=== PATIENT | male | born 1955 | race Caucasian/White ===

== ENCOUNTER → 2018-04-09 | Outpatient (CLI) | payer BC ==
--- NOTE | 2018-04-09 14:57 | US ---
EXAMINATION TYPE: US carotid duplex BILAT DATE OF EXAM: 04/09/2018 COMPARISON: NONE CLINICAL HISTORY: R42 Dizziness and Giddiness. EXAM MEASUREMENTS: RIGHT: Peak Systolic Velocity (PSV) cm/sec ----- Right CCA: 108 ----- Right ICA: 86.2 ----- Right ECA: 81.9 ICA/CCA ratio: 0.79 RIGHT: End Diastole cm/sec ----- Right CCA: 22.4 ----- Right ICA: 30.8 ----- Right ECA: 12.1 LEFT: Peak Systolic Velocity (PSV) cm/sec ----- Left CCA: 95.5 ----- Left ICA: 101.0 ----- Left ECA: 120 ICA/CCA ratio: 1.05 LEFT: End Diastole cm/sec ----- Left CCA: 22.5 ----- Left ICA: 22.5 ----- Left ECA: 18.8 VERTEBRALS (direction of flow): Right Vertebral: Antegrade Left Vertebral: Antegrade Rhythm: Normal No significant velocity elevations, minimal atherosclerotic changes. IMPRESSION: 1. Minimal bilateral atherosclerotic changes with no significant hemodynamic stenosis bilaterally. Criteria for Assigning % of Stenosis / Diameter reduction (Estimation based on the indirect measurements of the internal carotid artery velocities (ICA PSV). 1. Normal (no stenosis)=ICA PSV < 125 cm/s: ratio < 2.0: ICA EDV<40 cm/s. 2. Less than 50% stenosis=ICA PSV < 125 cm/s: ratio < 2.0: ICA EDV<40 cm/s. 3. 50 to 69% stenosis=ICA PSV of 125 to 230 cm/s: ration 2.0 ? 4.0: ICA EDV 40-100 cm/s. 4. Greater than 70% stenosis to near occlusion= ICA PSV > 230 cm/s: ratio > 4.0: ICA EDV > 100 cm/s. 5. Near occlusion= ICA PSV velocities may be low or undetectable: variable ratio and ICA EDV. 6. Total occlusion=unable to detect flow.
== END ==
LOC: RADUSWWP 14:06
PROVIDERS: ATTEND Family Medicine
DX: I70.90 Unspecified atherosclerosis (principal)
CPT/HCPCS: 93880

== ENCOUNTER → 2018-04-13 | Outpatient (CLI) | payer BC ==
--- NOTE | 2018-04-13 13:18 | EST ---
EXERCISE STRESS DATE OF SERVICE: 04/13/2018 AGE: 63 SEX: Male HT: 73 WT: 190 PROTOCOL: Quoc STAGE: III DURATION OF EXERCISE: 7 minutes HEART RATE REST: 106 BLOOD PRESSURE REST: 142/80 MAXIMUM HEART RATE ACHIEVED: 153 MAXIMUM BLOOD PRESSURE: 187/77 85% MPHR: 133 100% MPHR: 157 METS: 8.5 INDICATIONS: Chest pain. CLINICAL INFORMATION: Baseline EKG revealed normal sinus rhythm with a right bundle branch block pattern in the repolarization abnormality. Patient walked for 7 minutes on standard Quoc protocol. Heart rate changed from 106 to 153 and blood pressure changed from 142/80 to 187/77. The patient did not have angina or arrhythmia. He developed some fatigue and shortness of breath. EKG demonstrated no significant changes. However, because of resting EKG changes being abnormal, this is considered as an inconclusive stress test. Limited exercise capacity was noted. FINAL IMPRESSION: By EKG, this is an inconclusive stress test because of resting EKG changes. The patient had a right bundle with repolarization abnormality and heart rate was up to 153 beats per minute. No subjective symptoms of angina was noted, but this is an inconclusive stress test because of resting EKG changes. MMODL / IJN: [id number] /
== END | disposition home or self-care (01) ==
LOC: RADNMMAIN 08:41
PROVIDERS: ATTEND Family Medicine
DX: R94.39 Abnormal result of other cardiovascular function study (principal); R07.9 Chest pain, unspecified
CPT/HCPCS: 93017

== ENCOUNTER → 2020-10-26 | Day surgery (SDC) | payer BC, MEDICARE ==
[2020-10-24 10:32] VITALS: BMI 25.0
[~2020-10-26] MED LIST: LACTATED RINGERS 1,000 ML IV SCH; MIDAZOLAM 2 MG/2 ML VIAL ONE; PROPOFOL 10 MG/ML 20 ML VIAL IV ONE; fentaNYL (PF) 50 MCG/ML 2 ML AMP ONE
[2020-10-26 10:29] VITALS: TEMP 96.5
--- NOTE | 2020-10-26 11:22 | P.PCN ---
Date of Procedure: 10/26/20 Procedure(s) Performed: BRIEF HISTORY: Patient is a 65-year-old pleasant male scheduled for an elective colonoscopy as a part of screening for colorectal neoplasia. PROCEDURE PERFORMED: Colonoscopy with snare polypectomy. PREOPERATIVE DIAGNOSIS: Screening for colon cancer. IV sedation per Anesthesia. PROCEDURE: After informed consent was obtained, the patient, was brought into the endoscopy unit. IV sedation was administered by Anesthesia under continuous monitoring. Digital rectal examination was normal. Initially the Olympus CF-160 flexible video colonoscope was then inserted in the rectum, gradually advanced into the cecum without any difficulty. Careful examination was performed as the scope was gradually being withdrawn. Ileocecal valve and the appendiceal orifice were visualized and appeared normal. Prep was excellent. Mucosa of the cecum had a 5 mm polyp that was moved by snare polypectomy. Rest of the, ascending colon, transverse colon, descending colon, sigmoid colon, and rectum appeared normal. Scattered sigmoid diverticulosis seen. Retroflexion was performed in the rectum and no lesions were seen. The patient tolerated the procedure well. IMPRESSION: 5 mm cecal polyp status post polypectomy Scattered sigmoid diverticulosis RECOMMENDATIONS: Findings of this examination were discussed with the patient as well as his family. He was advised to follow with the biopsy results. If the biopsy shows an adenoma she can have a repeat colonoscopy in 5 years.
[2020-10-26 11:29] VITALS: RESP 17
[2020-10-26 11:40] VITALS: BP 114/72; PULSE 70
== END ==
LOC: ORWHC2ENDO 09:55
PROVIDERS: ATTEND Internal Medicine Gastroenterology
DX: Z12.11 Encounter for screening for malignant neoplasm of colon (principal); D12.0 Benign neoplasm of cecum; K57.30 Diverticulosis of large intestine without perforation or abscess without bleeding; Z79.82 Long term (current) use of aspirin; Z98.49 Cataract extraction status, unspecified eye; Z98.890 Other specified postprocedural states
CPT/HCPCS: 88305; 45385; J2250; J3010; J2704

== ENCOUNTER 2022-03-09 16:51 | Emergency (ER) | payer MEDICARE ==
[2022-03-09] MEDS ORDERED: SODIUM CHLORIDE 0.9% 500 ML 500 ML IV STA (17:23)
--- NOTE | 2022-03-09 17:29 | ED ---
General Adult HPI - General Chief complaint: Syncope Stated complaint: near syncope Time Seen by Provider: 03/09/22 17:14 Source: patient, EMS, RN notes reviewed, old records reviewed Mode of arrival: EMS Limitations: no limitations - History of Present Illness Initial comments: This is a well-appearing 66-year-old male that presents to the emergency room via EMS with complaints of a near syncopal episode today. Patient states that he developed some epigastric abdominal pain earlier this afternoon with belching. About an hour later he was speaking to his son on video chat and became very diaphoretic with abdominal cramping lasting about 1 minute. He became dizzy feeling like he was going to pass out. He states he then had a large loose bowel movement. Shortly later he had a second explosive episode of diarrhea. He states his symptoms have all resolved this time. He has no medical history. Takes aspirin on a daily basis. Denies any hematochezia or hematemesis. No known sick contacts. No fevers. Denies any abdominal pain, chest pain or difficulty breathing. -: hour(s) (3) Location: abdomen Radiation: non-radiation Severity scale (1-10): 0 Quality: other (cramping) Consistency: now resolved Associated Symptoms: diaphoresis, nausea/vomiting (no vomiting), other (diarrhea, dizziness) Treatments Prior to Arrival: other (EMS IVF) - Related Data Home Medications Medication Instructions Recorded Confirmed Ascorbic Acid [Vitamin C] 1,000 mg PO DAILY 10/24/20 10/24/20 Aspirin [Adult Low Dose Aspirin EC] 81 mg PO DAILY 10/24/20 10/24/20 Cholecalciferol [Vitamin D3 (25 100 mcg PO DAILY 10/24/20 10/24/20 Mcg = 1000 Iu)] Zinc/Picolinate 30 mg PO DAILY 10/24/20 Allergies Allergy/AdvReac Type Severity Reaction Status Date / Time No Known Allergies Allergy Verified 03/09/22 17:00 Review of Systems ROS Statement: Those systems with pertinent positive or pertinent negative responses have been documented in the HPI. ROS Other: All systems not noted in ROS Statement are negative. Past Medical History Past Medical History: Cancer Additional Past Medical History / Comment(s): Hx palpitiations, f/u EKG nl. Skin cancer on nose. History of Any Multi-Drug Resistant Organisms: None Reported Past Surgical History: Orthopedic Surgery Additional Past Surgical History / Comment(s): Skin cancer exc. Rt Knee scope. Colonoscopy. Bilat cataracts Past Anesthesia/Blood Transfusion Reactions: Motion Sickness, Postoperative Nausea & Vomiting (PONV) Additional Past Anesthesia/Blood Transfusion Reaction / Comment(s): PONV w/ knee surg. Past Psychological History: No Psychological Hx Reported Smoking Status: Former smoker Past Alcohol Use History: Rare Past Drug Use History: None Reported - Past Family History Mother Family Medical History: No Reported History General Exam Limitations: no limitations General appearance: alert, in no apparent distress Head exam: Present: atraumatic, normocephalic, normal inspection Eye exam: Present: normal appearance, EOMI. Absent: scleral icterus, conjunctival injection, nystagmus, periorbital swelling, periorbital tenderness ENT exam: Present: mucous membranes moist Neck exam: Present: normal inspection, full ROM. Absent: tenderness, meningismus, lymphadenopathy Respiratory exam: Present: normal lung sounds bilaterally. Absent: respiratory distress, wheezes, rales, rhonchi, stridor, chest wall tenderness, accessory muscle use Cardiovascular Exam: Present: regular rate GI/Abdominal exam: Present: soft. Absent: distended, tenderness, guarding, r ebound, rigid Extremities exam: Present: normal inspection, full ROM, normal capillary refill. Absent: tenderness, pedal edema, calf tenderness Back exam: Present: normal inspection, full ROM. Absent: tenderness, CVA tenderness (R), CVA tenderness (L), rash noted Neurological exam: Present: alert, oriented X3, CN II-XII intact Psychiatric exam: Present: normal affect, normal mood Skin exam: Present: warm, dry, normal color. Absent: cyanosis, diaphoretic, petechiae, pallor Course Vital Signs 03/09/22 03/09/22 03/09/22 16:55 18:00 19:00 Temperature 98.1 F Pulse Rate 83 80 Pulse Rate [ 93 Travelift Operator ] Respiratory 16 17 16 Rate Blood Pressure 144/89 131/81 Blood Pressure [Right Arm Sitting] Blood Pressure [Right Arm Standing] Blood Pressure 143/83 [Right Arm Supine] O2 Sat by Pulse 98 99 95 Oximetry 03/09/22 03/09/22 03/09/22 19:02 19:03 19:34 Temperature 98.3 F Pulse Rate Pulse Rate [ 90 98 Travelift Operator ] Respiratory 17 18 Rate Blood Pressure Blood Pressure 150/84 [Right Arm Sitting] Blood Pressure 146/76 [Right Arm Standing] Blood Pressure [Right Arm Supine] O2 Sat by Pulse 98 100 Oximetry 03/09/22 19:56 Temperature 98.5 F Pulse Rate 92 Pulse Rate [ Travelift Operator ] Respiratory 16 Rate Blood Pressure 137/83 Blood Pressure [Right Arm Sitting] Blood Pressure [Right Arm Standing] Blood Pressure [Right Arm Supine] O2 Sat by Pulse 99 Oximetry - Reevaluation(s) Reevaluation #1: 03/09/22 18:28 Patient is feeling better but does have some nausea. Labs are unremarkable. Time: 18:28 EKG Findings - EKG Results: EKG: sinus rhythm (Ventricular rate 88, AR interval 0.144, QRS 0.142, QTC 0.412; indeterminate axis; right bundle-branch block), not changed from: (04/13/2018) Medical Decision Making - Medical Decision Making Labs show mild leukocytosis likely related to a viral gastroenteritis with diarrhea and vomiting. Electrolytes are unremarkable. Troponin negative at 0.012. EKG interpreted by me shows sinus rhythm with Ventricular rate 88, AR interval 0.144, QRS 0.142, QTC 0.412; indeterminate ax is; right bundle-branch block. Coronavirus influenza A and influenza B swab are negative. He did have another episode of diaphoresis just prior to having another large loose bowel movement in the ER. This is consistent with a vasovagal episode. He was observed in the emergency room for a couple of hours after the incident and is feeling much better. Patient was given IV fluids, Zofran and Imodium. He was given Zofran and directed to increase his fluid intake. Orthostatic vital signs negative. Upon reassessment patient is feeling much better. Abdomen is soft and nontender. Vital signs are stable. Patient will be discharged home with a viral gastroenteritis. Return parameters were discussed. Directed to follow up with his primary care doctor this week. Patient is agreeable to this plan of care. Case discussed with Dr. Nguyen - Lab Data Result diagrams: 03/09/22 17:37 03/09/22 17:37 Lab Results 03/09/22 03/09/22 03/09/22 Range/Units 17:37 17:37 17:37 WBC 13.1 H (3.8-10.6) k/uL RBC 4.67 (4.30-5.90) m/uL Hgb 15.2 (13.0-17.5) gm/dL Hct 43.6 (39.0-53.0) % MCV 93.3 (80.0-100.0) fL MCH 32.4 (25.0-35.0) pg MCHC 34.8 (31.0-37.0) g/dL RDW 12.7 (11.5-15.5) % Plt Count 243 (150-450) k/uL MPV 7.9 Neutrophils % 87 % Lymphocytes % 7 % Monocytes % 4 % Eosinophils % 1 % Basophils % 0 % Neutrophils # 11.3 H (1.3-7.7) k/uL Lymphocytes # 0.9 L (1.0-4.8) k/uL Monocytes # 0.5 (0-1.0) k/uL Eosinophils # 0.2 (0-0.7) k/uL Basophils # 0.0 (0-0.2) k/uL PT 10.7 (9.0-12.0) sec INR 1.0 (<1.2) APTT 23.8 (22.0-30.0) sec Sodium 141 (137-145) mmol/L Potassium 4.7 (3.5-5.1) mmol/L Chloride 105 (98-107) mmol/L Carbon Dioxide 29 (22-30) mmol/L Anion Gap 7 mmol/L BUN 20 (9-20) mg/dL Creatinine 1.25 (0.66-1.25) mg/dL Est GFR (CKD-EPI)AfAm 69 (>60 ml/min/1.73 sqM) Est GFR (CKD-EPI)NonAf 60 (>60 ml/min/1.73 sqM) Glucose 109 H (74-99) mg/dL Calcium 9.0 (8.4-10.2) mg/dL Magnesium 1.7 (1.6-2.3) mg/dL Total Bilirubin 0.7 (0.2-1.3) mg/dL AST 30 (17-59) U/L ALT 35 (4-49) U/L Alkaline Phosphatase 65 (38-126) U/L Troponin I (0.000-0.034) ng/mL Total Protein 7.4 (6.3-8.2) g/dL Albumin 4.4 (3.5-5.0) g/dL Coronavirus (PCR) (Not Detectd) Influenza Type A RNA (Not Detectd) Influenza Type B (PCR) (Not Detectd) 03/09/22 03/09/22 03/09/22 Range/Units 17:37 17:37 17:37 WBC (3.8-10.6) k/uL RBC (4.30-5.90) m/uL Hgb (13.0-17.5) gm/dL Hct (39.0-53.0) % MCV (80.0-100.0) fL MCH (25.0-35.0) pg MCHC (31.0-37.0) g/dL RDW (11.5-15.5) % Plt Count (150-450) k/uL MPV Neutrophils % % Lymphocytes % % Monocytes % % Eosinophils % % Basophils % % Neutrophils # (1.3-7.7) k/uL Lymphocytes # (1.0-4.8) k/uL Monocytes # (0-1.0) k/uL Eosinophils # (0-0.7) k/uL Basophils # (0-0.2) k/uL PT (9.0-12.0) sec INR (<1.2) APTT (22.0-30.0) sec Sodium (137-145) mmol/L Potassium (3.5-5.1) mmol/L Chloride (98-107) mmol/L Carbon Dioxide (22-30) mmol/L Anion Gap mmol/L BUN (9-20) mg/dL Creatinine (0.66-1.25) mg/dL Est GFR (CKD-EPI)AfAm (>60 ml/min/1.73 sqM) Est GFR (CKD-EPI)NonAf (>60 ml/min/1.73 sqM) Glucose (74-99) mg/dL Calcium (8.4-10.2) mg/dL Magnesium (1.6-2.3) mg/dL Total Bilirubin (0.2-1.3) mg/dL AST (17-59) U/L ALT (4-49) U/L Alkaline Phosphatase (38-126) U/L Troponin I <0.012 (0.000-0.034) ng/mL Total Protein (6.3-8.2) g/dL Albumin (3.5-5.0) g/dL Coronavirus (PCR) Not Detected (Not Detectd) Influenza Type A RNA Not Detected (Not Detectd) Influenza Type B (PCR) Not Detected (Not Detectd) Disposition Clinical Impression: Gastroenteritis Disposition: HOME SELF-CARE Condition: Good Instructions (If sedation given, give patient instructions): Gastroenteritis (ED) Additional Instructions: Increase your fluid intake. Remember to change your position slowly to avoid any dizziness or falls. Zofran as needed for any nausea as prescribed. Imodium for diarrhea [id number]. Follow-up with the primary care doctor this week. Return to the emergency room with any new or concerning symptoms. Is patient prescribed a controlled substance at d/c from ED?: No Referrals: Miguel Ángel Pimentel MD [Primary Care Provider] - 1-2 days Time of Disposition: 19:59
[2022-03-09 17:48] LABS: Basophils % (A) 0 %; Eosinophils # (A) 0.2 k/uL (0-0.7); Eosinophils % (A) 1 %; HCT 43.6 % (39.0-53.0); HGB 15.2 gm/dL (13.0-17.5); Lymphocytes # (A) 0.9 k/uL (1.0-4.8); Lymphocytes % (A) 7 %; MCH 32.4 pg (25.0-35.0); MCHC 34.8 g/dL (31.0-37.0); MCV 93.3 fL (80.0-100.0); Mean Platelet Volume 7.9; Monocytes # (A) 0.5 k/uL (0-1.0); Monocytes % (A) 4 %; Neutrophils # (A) 11.3 k/uL (1.3-7.7); Neutrophils % (A) 87 %; Platelet Count 243 k/uL (150-450); RBC 4.67 m/uL (4.30-5.90); RDW 12.7 % (11.5-15.5); WBC 13.1 k/uL (3.8-10.6)
--- NOTE | 2022-03-09 17:52 | XR ---
EXAMINATION TYPE: XR chest 2V DATE OF EXAM: 03/09/2022 COMPARISON: NONE HISTORY: Syncope TECHNIQUE: 2 views FINDINGS: Heart and mediastinum are normal. Lungs are clear. Diaphragm is normal. Bony thorax is inta ct. IMPRESSION: Normal chest.
[2022-03-09 17:57] LABS: Partial Thromboplastin Time 23.8 sec (22.0-30.0); Prothrombin Time 10.7 sec (9.0-12.0)
[2022-03-09 17:58] LABS: Albumin 4.4 g/dL (3.5-5.0); Magnesium 1.7 mg/dL (1.6-2.3); Potassium 4.7 mmol/L (3.5-5.1); Total Bilirubin 0.7 mg/dL (0.2-1.3); Total Protein 7.4 g/dL (6.3-8.2)
[2022-03-09] MEDS ORDERED: ONDANSETRON 4 MG/2 ML VIAL IVP STA (18:28)
[2022-03-09] MEDS ORDERED: LOPERAMIDE 2 MG CAP PO STA (19:56)
[2022-03-09 19:57] VITALS: BP 137/83; PULSE 92; RESP 16; TEMP 98.5
[2022-03-09] MEDS ORDERED: ONDANSETRON 4 MG ODT STARTER PACK 2 TAB BTL PO STA (19:57)
== END 2022-03-09 20:36 | disposition home or self-care (01) ==
LOC: EC 16:51
DX: K52.9 Noninfective gastroenteritis and colitis, unspecified (principal); Z87.891 Personal history of nicotine dependence
CPT/HCPCS: 36415; 93005; 80053; 83735; 84484; 85025; 85610; 85730; 87502; 87635; 71046; 99285; 96374; 96361; J2405; S0119

== ENCOUNTER 2023-06-23 13:01 | Observation (INO) | payer MEDICARE ==
[2023-06-23] MEDS: ASPIRIN 81 MG PO STA (13:32)
[2023-06-23] MEDS: NITROGLYCERIN OINT 1 INCH/GM PACKET TOPICAL STA (13:34)
--- NOTE | 2023-06-23 13:46 | ED ---
General Adult HPI - General Chief complaint: Chest Pain Stated complaint: Chest Pain, High Heart Rate Time Seen by Provider: 06/23/23 13:05 Source: patient, RN notes reviewed, old records reviewed Mode of arrival: ambulatory Limitations: no limitations - History of Present Illness Initial comments: This is a 68-year-old male who presents to the emergency department stating that for the last 3 days he was having intermittent chest pain and he describes it as a pressure. Patient denies any radiation of the pain. Patient denies any shortness of breath or difficulty breathing. Patient denies any nausea. Patient denies any diaphoretic episode. Patient denies any recent fever chills or cough. Patient denies any history of heart disease diabetes high blood pressure high cholesterol. Patient denies any smoking history or family history. Patient states is not always there it kind of comes and goes but it usually worse if he is doing something. No calf tenderness or leg swelling. - Related Data Home Medications Medication Instructions Recorded Confirmed Ascorbic Acid [Vitamin C] 1,000 mg PO DAILY 10/24/20 06/23/23 Aspirin [Adult Low Dose Aspirin EC] 81 mg PO DAILY 10/24/20 06/23/23 Cholecalciferol [Vitamin D3 (25 50 mcg PO DAILY 10/24/20 06/23/23 Mcg = 1000 Iu)] Quercetin(Unknown Dose) 1 tab PO DAILY 06/23/23 06/23/23 Zinc Gluconate [Zinc] 50 mg PO DAILY 06/23/23 06/23/23 Allergies Allergy/AdvReac Type Severity Reaction Status Date / Time lanolin Allergy Rash/Hives Verified 06/23/23 14:40 Review of Systems ROS Statement: Those systems with pertinent positive or pertinent negative responses have been documented in the HPI. ROS Other: All systems not noted in ROS Statement are negative. Past Medical History Past Medical History: Cancer Additional Past Medical History / Comment(s): Hx palpitiations, f/u EKG nl. Skin cancer on nose. History of Any Multi-Drug Resistant Organisms: None Reported Past Surgical History: Hernia Repair, Orthopedic Surgery Additional Past Surgical History / Comment(s): Skin cancer exc. Rt Knee scope. Colonoscopy. Bilat cataracts Past Anesthesia/Blood Transfusion Reactions: Motion Sickness, Postoperative Nausea & Vomiting (PONV) Additional Past Anesthesia/Blood Transfusion Reaction / Comment(s): PONV w/ knee surg. Past Psychological History: No Psychological Hx Reported Smoking Status: Former smoker Past Alcohol Use History: Rare Past Drug Use History: None Reported - Past Family History Mother Family Medical History: No Reported History General Exam - General Exam Comments Initial Comments: GENERAL: Patient is well-developed and well-nourished. Patient is nontoxic and well- hydrated and is in mild distress. ENT: Neck is soft and supple. No significant lymphadenopathy is noted. Oropharynx is clear. Moist mucous membranes. Neck has full range of motion without eliciting any pain. EYES: The sclera were anicteric and conjunctiva were pink and moist. Extraocular movements were intact and pupils were equal round and reactive to light. Eyelids were unremarkable. PULMONARY: Unlabored respirations. Good breath sounds bilaterally. No audible rales rhonchi or wheezing was noted. CARDIOVASCULAR: There is a regular rate and rhythm without any murmurs gallops or rubs. ABDOMEN: Soft and nontender with normal bowel sounds. SKIN: Skin is clear with no lesions or rashes and otherwise unremarkable. NEUROLOGIC: Patient is alert and oriented x3. Cranial nerves II through XII are grossly intact. Motor and sensory are also intact. Normal speech, volume and content. Symmetrical smile. MUSCULOSKELETAL: Normal extremities with adequate strength and full range of motion. No lower extremity swelling or edema. No calf tenderness. LYMPHATICS: No significant lymphadenopathy is noted PSYCHIATRIC: Normal psychiatric evaluation. Limitations: no limitations Course Vital Signs 06/23/23 06/23/23 06/23/23 13:03 13:06 13:31 Temperature 97.8 F Pulse Rate 71 Respiratory 18 Rate Blood Pressure 181/94 167/97 157/87 O2 Sat by Pulse 100 Oximetry 06/23/23 14:00 Temperature Pulse Rate 75 Respiratory 12 Rate Blood Pressure 141/89 O2 Sat by Pulse 100 Oximetry Medical Decision Making - Medical Decision Making EKG is interpreted by myself but EKG shows a sinus rhythm with occasional PAC at 75 bpm parables 155 QRS is 150 QT interval 385 QTc is 414. Patient's EKG shows a right bundle branch block. Was pt. sent in by a medical professional or institution (, PA, JOINTER MACHINE, urgent care, hospital, or long-term...) When possible be specific @ -No Did you speak to anyone other than the patient for history (EMS, parent, family, police, friend...)? What history was obtained from this source @ -EMS gave most of the history on this patient Did you review nursing and triage notes (agree or disagree)? Why? @ -I reviewed and agree with nursing and triage notes Were old charts reviewed (outside hosp., previous admission, EMS record, old EKG, old radiological studies, urgent care reports/EKG's, long-term records)? Report findings @ -I reviewed prior charts and prior lab work on this patient Differential Diagnosis (chest pain, altered mental status, abdominal pain women, abdominal pain men, vaginal bleeding, weakness, fever, dyspnea, syncope, headache, dizziness, GI bleed, back pain, seizure, CVA, palpatations, mental health, musculoskeletal)? @ -Differential Dyspnea: Coronary syndrome, arrhythmia, tamponade, asthma, COPD, pulmonary embolism, pneumonia, pneumothorax, pulmonary effusion, anaphylaxis, diabetic ketoacidosis, flailed chest, pulmonary contusion, diaphragmatic rupture, anemia, neuromuscular, this is not meant to be an all-inclusive list. Differential Palpitations Ventricular arrhythmias, atrial arrhythmias, myocardial infarction, anemia, thyrotoxicosis, electrolyte imbalance, hypokalemia, pulmonary embolism, pulmonary disease, drugs, alcohol, anxiety, stress.... This is not meant to be an all-inclusive list. EKG interpreted by me (3pts min.). @ -As above X-rays interpreted by me (1pt min.). @ -Chest x-ray shows no acute abnormality CT interpreted by me (1pt min.). @ -None done U/S interpreted by me (1pt. min.). @ -None done What testing was considered but not performed or refused? (CT, X-rays, U/S, labs)? Why? @ -None What meds were considered but not given or refused? Why? @ -None Did you discuss the management of the patient with other professionals (professionals i.e. DrJavier, PA, JOINTER MACHINE, lab, RT, psych nurse, long term care social worker, diathermy equipment repairer, teacher, parking regulation enforcement officer, telephonic case manager)? Give summary @ -I spoke with Dr. Townsend and he agreed with the patient admit the patient wrote admitting orders Was smoking cessation discussed for >3mins.? @ -No Was critical care preformed (if so, how long)? @ -No Were there social determinants of health that impacted care today? How? (Homelessness, low income, unemployed, alcoholism, drug addiction, transportation, low edu. Level, literacy, decrease access to med. care, long term, rehab)? @ -No Was there de-escalation of care discussed even if they declined (Discuss DNR or withdrawal of care, Hospice)? DNR status @ -No What co-morbidities impacted this encounter? (DM, HTN, Smoking, COPD, CAD, Cancer, CVA, ARF, Chemo, Hep., AIDS, mental health diagnosis, sleep apnea, morbid obesity)? @ -None Was patient admitted / discharged? Hospital course, mention meds given and route, prescriptions, significant lab abnormalities, going to OR and other pertinent info. @ -Patient stated after he got the aspirin and Nitropaste he was feeling a little bit better but he still had some chest pressure. Patient is willing to stay. I spoke with Dr. Townsend he agreed to admit the patient admit the patient I consulted cardiology. Undiagnosed new problem with uncertain prognosis? @ -No Drug Therapy requiring intensive monitoring for toxicity (Heparin, Nitro, Insulin, Cardizem)? @ -No Were any procedures done? @ -No Diagnosis/symptom? @ -Chest pain Acute, or Chronic, or Acute on Chronic? @ -Acute Uncomplicated (without systemic symptoms) or Complicated (systemic symptoms)? @ -Complicated Side effects of treatment? @ -No Exacerbation, Progression, or Severe Exacerbation? @ -No Poses a threat to life or bodily function? How? (Chest pain, USA, DC, pneumonia, PE, COPD, DKA, ARF, appy, cholecystitis, CVA, Diverticulitis, Homicidal, Suicidal, threat to staff... and all critical care pts) @ -Yes this can lead to an DC and endorgan dysfunction or possible - Lab Data Result diagrams: 06/23/23 13:37 06/23/23 13:37 Lab Results 06/23/23 06/23/23 06/23/23 Range/Units 13:37 13:37 13:37 WBC 7.0 (3.8-10.6) k/uL RBC 4.92 (4.30-5.90) m/uL Hgb 15.3 (13.0-17.5) gm/dL Hct 46.3 (39.0-53.0) % MCV 94.0 (80.0-100.0) fL MCH 31.0 (25.0-35.0) pg MCHC 33.0 (31.0-37.0) g/dL RDW 12.0 (11.5-15.5) % Plt Count 292 (150-450) k/uL MPV 7.2 Neutrophils % 62 % Lymphocytes % 25 % Monocytes % 6 % Eosinophils % 4 % Basophils % 1 % Neutrophils # 4.4 (1.3-7.7) k/uL Lymphocytes # 1.8 (1.0-4.8) k/uL Monocytes # 0.4 (0-1.0) k/uL Eosinophils # 0.3 (0-0.7) k/uL Basophils # 0.1 (0-0.2) k/uL PT 11.1 (10.0-12.5) sec INR 1.0 (<1.2) APTT 26.5 (22.0-30.0) sec Sodium 139 (137-145) mmol/L Potassium 4.1 (3.5-5.1) mmol/L Chloride 103 (98-107) mmol/L Carbon Dioxide 28 (22-30) mmol/L Anion Gap 8 mmol/L BUN 17 (9-20) mg/dL Creatinine 1.17 (0.66-1.25) mg/dL Est GFR (CKD-EPI)AfAm 74 (>60 ml/min/1.73 sqM) Est GFR (CKD-EPI)NonAf 64 (>60 ml/min/1.73 sqM) Glucose 101 H (74-99) mg/dL Calcium 9.7 (8.4-10.2) mg/dL Magnesium 1.9 (1.6-2.3) mg/dL Total Bilirubin 0.5 (0.2-1.3) mg/dL AST 30 (17-59) U/L ALT 27 (4-49) U/L Alkaline Phosphatase 77 (38-126) U/L Troponin I (0.000-0.034) ng/mL Total Protein 7.4 (6.3-8.2) g/dL Albumin 4.4 (3.5-5.0) g/dL 06/23/23 Range/Units 13:37 WBC (3.8-10.6) k/uL RBC (4.30-5.90) m/uL Hgb (13.0-17.5) gm/dL Hct (39.0-53.0) % MCV (80.0-100.0) fL MCH (25.0-35.0) pg MCHC (31.0-37.0) g/dL RDW (11.5-15.5) % Plt Count (150-450) k/uL MPV Neutrophils % % Lymphocytes % % Monocytes % % Eosinophils % % Basophils % % Neutrophils # (1.3-7.7) k/uL Lymphocytes # (1.0-4.8) k/uL Monocytes # (0-1.0) k/uL Eosinophils # (0-0.7) k/uL Basophils # (0-0.2) k/uL PT (10.0-12.5) sec INR (<1.2) APTT (22.0-30.0) sec Sodium (137-145) mmol/L Potassium (3.5-5.1) mmol/L Chloride (98-107) mmol/L Carbon Dioxide (22-30) mmol/L Anion Gap mmol/L BUN (9-20) mg/dL Creatinine (0.66-1.25) mg/dL Est GFR (CKD-EPI)AfAm (>60 ml/min/1.73 sqM) Est GFR (CKD-EPI)NonAf (>60 ml/min/1.73 sqM) Glucose (74-99) mg/dL Calcium (8.4-10.2) mg/dL Magnesium (1.6-2.3) mg/dL Total Bilirubin (0.2-1.3) mg/dL AST (17-59) U/L ALT (4-49) U/L Alkaline Phosphatase (38-126) U/L Troponin I <0.012 (0.000-0.034) ng/mL Total Protein (6.3-8.2) g/dL Albumin (3.5-5.0) g/dL Disposition Clinical Impression: Chest pain Disposition: ADMITTED IP TO THIS [facility] Referrals: Miguel Ángel Pimentel MD [Primary Care Provider] - 1-2 days Time of Disposition: 15:05
[2023-06-23 13:50] LABS: Basophils # (A) 0.1 k/uL (0-0.2); Basophils % (A) 1 %; Eosinophils # (A) 0.3 k/uL (0-0.7); Eosinophils % (A) 4 %; HCT 46.3 % (39.0-53.0); HGB 15.3 gm/dL (13.0-17.5); Lymphocytes # (A) 1.8 k/uL (1.0-4.8); Lymphocytes % (A) 25 %; Mean Platelet Volume 7.2; Monocytes # (A) 0.4 k/uL (0-1.0); Monocytes % (A) 6 %; Neutrophils # (A) 4.4 k/uL (1.3-7.7); Neutrophils % (A) 62 %; Platelet Count 292 k/uL (150-450); RBC 4.92 m/uL (4.30-5.90)
[2023-06-23 14:02] LABS: ALT 27 U/L (4-49); AST 30 U/L (17-59); African American GFR (CKD) 74 (>60 ml/min/1.73 sqM); Albumin 4.4 g/dL (3.5-5.0); Alkaline Phosphatase 77 U/L (38-126); Anion Gap 8 mmol/L; Blood Urea Nitrogen 17 mg/dL (9-20); Calcium 9.7 mg/dL (8.4-10.2); Carbon Dioxide 28 mmol/L (22-30); Chloride 103 mmol/L (98-107); Glucose 101 mg/dL (74-99); Magnesium 1.9 mg/dL (1.6-2.3); Non-African American GFR(CKD) 64 (>60 ml/min/1.73 sqM); Potassium 4.1 mmol/L (3.5-5.1); Sodium 139 mmol/L (137-145); Total Bilirubin 0.5 mg/dL (0.2-1.3); Total Protein 7.4 g/dL (6.3-8.2)
[2023-06-23 14:14] LABS: Partial Thromboplastin Time 26.5 sec (22.0-30.0); Prothrombin Time 11.1 sec (10.0-12.5)
[2023-06-23] MEDS ORDERED: NITROGLYCERIN SL TABS 0.4 MG TAB SUBLINGUAL PRN (15:10)
--- NOTE | 2023-06-23 15:32 | XR ---
EXAMINATION TYPE: XR chest 2V DATE OF EXAM: 06/23/2023 2:23 PM CLINICAL INDICATION:Male, 68 years old with history of Chest Pain; H COMPARISON: Chest radiographs from TECHNIQUE: XR chest 2V Frontal and lateral views of the chest. FINDINGS: Lungs/Pleura: There is no evidence of pleural effusion, focal consolidation, or pneumothorax. Pulmonary vascularity: Unremarkable. Heart/mediastinum: Cardiomediastinal silhouette is unremarkable. Musculoskeletal: No acute osseous pathology. Other findings: None Lines/Tubes: IMPRESSION: No acute cardiopulmonary disease/process.
--- NOTE | 2023-06-23 16:23 | P.HPIM ---
History of Present Illness H&P Date: 06/23/23 History of Presenting Illness: Patient is a very pleasant 68-year-old male with a past medical history of skin cancer status post removal and hernia status post recent repair 4 weeks ago. Presented to the emergency department with a chief complaint of chest pain and palpitations. Patient reports he has been experiencing intermittent "weird fluttering feeling" in his chest followed by an achiness/soreness. Patient reports today he began feeling the fluttering and achy sensation in his chest that seem to be longer lasting and more persistent lasting for a good 20 minutes and now just feels like a persistent soreness. Patient reports he took his pulse during this time and stated that it would skip some beats and then beat really fast before skipping a couple more beats and returning to normal. Patient states he also took his blood pressure at home which was elevated so he came to the emergency department for evaluation. He denies having any dizziness, lightheadedness, diaphoresis, fever, chills, changes in vision or h earing, shortness of breath or dyspnea with exertion, nausea, vomiting, or experiencing any numbness/tingling/weakness/swelling in his extremities. He denies history of DVT or previous PE and denies history of any cardiac arrhythmias or other complaints. Patient does follow outpatient with PCP Dr. Pimentel. He underwent full evaluation in the emergency department. Vital signs upon arrival show blood pressure 181/94, heart rate 71, respiratory rate 18, temp 97.8 F, and SpO2 100% on room air. EKG was completed showing normal sinus rhythm with PACs and a right bundle branch block with QRS duration of 150 ms. Chest x-ray completed and was negative for acute cardiopulmonary process. Labs completed and reviewed. CBC, coagulation profile, BMP, and liver profile were unremarkable. Troponin was negative at less than 0.012. Patient admitted under our services with consultation to cardiology. Review of systems: Pertinent positives and negatives as discussed in HPI, a complete review of systems was performed and all other systems are negative. Physical exam: Vital signs reviewed and stable. General: Nontoxic, no distress and appears stated age. Derm: Skin warm and dry, normal coloration for ethnicity. Head: Atraumatic, normocephalic and symmetric. Eyes: EOMs intact, no lid lag, and anicteric sclera Mouth: no lip lesions, mucus membranes moist Cardiovascular: regular rate and rhythm with normal S1S2, no murmur, positive posterior tibial pulses bilaterally, and cap refill < 2 seconds. Lungs: Respirations even, regular, and unlabored on room air. Lungs CTA bilaterally, no rhonchi, no rales, no wheezing, and no accessory muscle usage. Abdominal: soft, nontender to palpation, no guarding, no appreciable organomegaly Ext: ROM intact. No gross muscle atrophy, no edema, no contractures Neuro: Speech clear, face symmetrical and CN II-XII grossly intact with no noted focal neuro deficits Psych: Alert and oriented to person, place, time, and situation. Appropriate and pleasant affect. Assessment and Plan of Care: Chest pain and palpitations, rule out acute coronary event Hypertension Status post recent abdominal surgery for hernia repair -Cardiology consulted, appreciate recommendations -Telemetry monitoring -Trend troponins -Cardiac diet, NPO at midnight -Continue aspirin 81 mg daily -Lipid profile with a.m. labs. -Echocardiogram to be completed -Heart score is 3 -Wells score is 7.5 placing patient at high risk for pulmonary emboli, order pl aced for CTA chest to rule out pulmonary emboli. -Order placed for TSH with free T4 -Lovenox for DVT prophylaxis -Patient was hypertensive upon arrival with blood pressure 181/94 and heart rate of 71, currently blood pressure has improved without intervention and is 140/85 and heart rate of 69 Data and imaging reviewed: As stated above in HPI The patient is admitted with an anticipated less than 2 midnight stay for evaluation of chest pain and palpitations CODE STATUS: Full code DVT prophylaxis: Lovenox Anticipated discharge date: 24 to [address]: Home Patient was seen independently by Nurse Practitioner. This document was prepared using [employer]_ dictation software. Please allow for errors in astronaut mission specialist while rare they do occur. I reviewed the documentation as provided by the BREE above, who is the original author of this note. I agree with the documented assessment and plan, with the following changes: none Past Medical History Past Medical History: Cancer Additional Past Medical History / Comment(s): Hx palpitiations, f/u EKG nl. Skin cancer on nose. History of Any Multi-Drug Resistant Organisms: None Reported Past Surgical History: Hernia Repair, Orthopedic Surgery Additional Past Surgical History / Comment(s): Skin cancer exc. Rt Knee scope. Colonoscopy. Bilat cataracts Past Anesthesia/Blood Transfusion Reactions: Motion Sickness, Postoperative Nausea & Vomiting (PONV) Additional Past Anesthesia/Blood Transfusion Reaction / Comment(s): PONV w/ knee surg. Past Psychological History: No Psychological Hx Reported Smoking Status: Former smoker Past Alcohol Use History: Rare Past Drug Use History: None Reported - Past Family History Mother Family Medical History: No Reported History Medications and Allergies Home Medications Medication Instructions Recorded Confirmed Type Ascorbic Acid [Vitamin C] 1,000 mg PO DAILY 10/24/20 06/23/23 History Aspirin [Adult Low Dose Aspirin EC] 81 mg PO DAILY 10/24/20 06/23/23 History Cholecalciferol [Vitamin D3 (25 50 mcg PO DAILY 10/24/20 06/23/23 History Mcg = 1000 Iu)] Quercetin(Unknown Dose) 1 tab PO DAILY 06/23/23 06/23/23 History Zinc Gluconate [Zinc] 50 mg PO DAILY 06/23/23 06/23/23 History Allergies Allergy/AdvReac Type Severity Reaction Status Date / Time lanolin Allergy Rash/Hives Verified 06/23/23 14:40 Physical Exam Vitals: Vital Signs Temp Pulse Resp BP Pulse Ox 06/23/23 14:00 75 12 141/89 100 06/23/23 13:31 157/87 06/23/23 13:06 167/97 06/23/23 13:03 97.8 F 71 18 181/94 100 Intake and Output 06/23/23 06/23/23 06/23/23 06:59 14:59 22:59 Other: Weight 88.451 kg Results CBC & Chem 7: 06/24/23 06:29 06/24/23 06:29 Labs: Abnormal Lab Results - Last 24 Hours (Table) 06/23/23 Range/Units 13:37 Glucose 101 H (74-99) mg/dL
--- NOTE | 2023-06-23 17:08 | CT ---
EXAMINATION TYPE: CT chest angio for PE CT DLP: 377.1 mGycm, Automated exposure control for dose reduction was used. DATE OF EXAM: 06/23/2023 4:59 PM COMPARISON: Chest radiograph from same day. CLINICAL INDICATION:Male, 68 years old with history of cp, palpitations, recent abd sx; cp, palpitati ons, recent abd sx TECHNIQUE/CONTRAST: CTA scan of the thorax is performed with IV Contrast, patient injected with 100 mL of Isovue 370, MIP images are created and reviewed these are created on a separate workstation.. FINDINGS: Pulmonary Artery: There is no evidence for a filling defect within the pulmonary vasculature to sugge st acute pulmonary embolism. The pulmonary artery is of normal size. Lungs/Pleura: No evidence of focal consolidation, pleural effusion or pneumothorax. Minor fissure int rafissural lymph node. Airway: Large airways are patent. Heart: Heart is within normal limits for size. Vasculature: No evidence of aortic aneurysm. Mediastinum: No gross evidence of adenopathy. Musculoskeletal: No acute osseous abnormalities Soft Tissues: Unremarkable. Lower neck: No significant findings. Upper Abdomen: No significant findings. IMPRESSION: 1. No evidence of pulmonary embolism. 2. No evidence for acute airspace disease or acute process.
[2023-06-23] MEDS: NITROGLYCERIN OINT 1 INCH/GM PACKET TOPICAL SCH (21:27)
[2023-06-23 21:53] VITALS: RESP 16
[2023-06-24] MEDS: ASPIRIN 81 MG PO SCH (08:44)
[2023-06-24] MEDS: ENOXAPARIN 40 MG/0.4 ML SYRINGE SQ SCH (08:44)
[2023-06-24] MEDS: ZINC SULFATE 220 MG CAP PO SCH (08:44)
[2023-06-24] MEDS: ASCORBIC ACID 500 MG TAB PO SCH (08:44)
[2023-06-24] MEDS: CHOLECALCIFEROL 25 MCG (1000 IU) TABLET PO SCH (08:44)
[2023-06-24] MEDS ORDERED: ASPIRIN 325 MG TAB PO SCH (09:00)
[2023-06-24] MEDS ORDERED: CAFFEINE CITRATE 60 MG/3 ML VIAL IV PRN (11:12)
[2023-06-24] MEDS ORDERED: REGADENOSON 0.4 MG/5 ML SYRINGE IV PRN (11:12)
[2023-06-24] MEDS ORDERED: AMINOPHYLLINE 500 MG/20 ML VIAL IV PRN (11:12)
--- NOTE | 2023-06-24 11:12 | P.CRDCN ---
History of Present Illness Consult date: 06/24/23 Consult reason: chest pain History of present illness: History of present illness: This is a 68-year-old male with no previous cardiac history. No history of diabetes, hypertension hyperlipidemia. We have been asked to evaluate the patient for chest pain. He states he developed chest pain that was nonradiating, not associated with shortness of breath. He has had this in the past but very rarely. For the past 3 days he has had the discomfort in the lower sternal area and a little flutter sensation. Pain is an ache. He states he checks his pulse and it seems to be normal and then seems to skip a beat and then go back to be normal he thought that yesterday there was more fluctuation in his irregular heartbeat. He checked his blood pressure at home and it was 141/84. The chest pain onset was while he was sitting. Does not seem to be exacerbated by activity. It does seem to be more of obvious in the afternoons. He denies having any shortness of breath no nausea no fever or chills. EKG sinus rhythm with right bundle branch block and PACs x 2 EKGs. Chest x-ray: No acute process CTA of the chest negative for pulmonary embolism. No evidence of acute airspace disease or acute process. CBC, INR, electrolytes, renal function, liver function test all within normal limits. Troponin negative x 3. TSH 1.69. Blood sugar 101. Magnesium 1.9. Home cardiac medications: Aspirin 81 mg daily. Exercise stress test performed 04/13/2018 was inconclusive because of resting EKG changes. Patient had a right bundle branch with repolarization abnormality and heart rate up to 153 bpm. No subjective symptoms of angina was noted. This is an inconclusive stress test because of resting EKG changes. Review Of Systems: At the time of my exam: CONSTITUTIONAL: Denies fever or chills. HEENT: Denies blurred vision, vision changes, or eye pain. Denies hemoptysis CARDIOVASCULAR: Denies chest pain. Denies orthopnea. Denies PND. Denies p alpitations RESPIRATORY: Denies shortness of breath. GASTROINTESTINAL: Denies abdominal pain. Denies nausea or vomiting. HEMATOLOGIC: Denies bleeding disorders. GENITOURINARY: Denies any blood in urine. SKIN: Denies pruitis. Denies rash. Physical examination: Gen: This is a 68-year-old male in no acute distress VS: reviewed HEENT: Head is atraumatic, normocephalic. Pupils equal, round. Sclerae is anicteric. NECK: Supple. No JVD. LUNGS: Clear to auscultation. No wheezes or rhonchi. No intercostal retractions. HEART: Regular rate and rhythm. No murmur. ABDOMEN: Soft No tenderness. EXTREMITIES: No pedal edema. No calf tenderness. NEUROLOGICAL: Patient is awake, alert and oriented x3. Assessment: Atypical chest pain, acute coronary syndrome ruled out Plan: Resume patient's home cardiac medications Discontinue Nitropaste Obtain 2-D echocardiogram and Doppler study to assess cardiac structure and function Obtain exercise stress test today If stress test and echocardiogram are unremarkable, patient is cleared for discharge. Thank you kindly for this consultation. Nurse practitioner note has been reviewed, I agree with documented findings and plan of care. Patient was seen and examined. Past Medical History Past Medical History: Cancer Additional Past Medical History / Comment(s): Hx palpitiations, f/u EKG nl. Skin cancer on nose. History of Any Multi-Drug Resistant Organisms: None Reported Past Surgical History: Hernia Repair, Orthopedic Surgery Additional Past Surgical History / Comment(s): Skin cancer exc. Rt Knee scope. Colonoscopy. Bilat cataracts Past Anesthesia/Blood Transfusion Reactions: Motion Sickness, Postoperative Nausea & Vomiting (PONV) Additional Past Anesthesia/Blood Transfusion Reaction / Comment(s): PONV w/ knee surg. Past Psychological History: No Psychological Hx Reported Smoking Status: Former smoker Past Alcohol Use History: Rare Past Drug Use History: None Reported - Past Family History Mother Family Medical History: No Reported History Medications and Allergies Home Medications Medication Instructions Recorded Confirmed Type Ascorbic Acid [Vitamin C] 1,000 mg PO DAILY 10/24/20 06/23/23 History Aspirin [Adult Low Dose Aspirin EC] 81 mg PO DAILY 10/24/20 06/23/23 History Cholecalciferol [Vitamin D3 (25 50 mcg PO DAILY 10/24/20 06/23/23 History Mcg = 1000 Iu)] Quercetin(Unknown Dose) 1 tab PO DAILY 06/23/23 06/23/23 History Zinc Gluconate [Zinc] 50 mg PO DAILY 06/23/23 06/23/23 History Allergies Allergy/AdvReac Type Severity Reaction Status Date / Time lanolin Allergy Rash/Hives Verified 06/23/23 14:40 Physical Exam Vitals: Vital Signs Temp Pulse Pulse Resp BP BP Pulse Ox 06/24/23 02:00 97.6 F 67 16 104/65 96 06/23/23 20:00 98 F 67 16 128/71 97 06/23/23 19:27 73 18 115/72 95 06/23/23 18:00 83 18 116/72 06/23/23 17:00 75 19 130/78 98 06/23/23 16:00 70 18 134/83 96 06/23/23 15:00 69 18 140/85 98 06/23/23 14:00 75 12 141/89 100 06/23/23 13:31 157/87 06/23/23 13:06 167/97 06/23/23 13:03 97.8 F 71 18 181/94 100 Intake and Output 06/23/23 06/24/23 06/24/23 22:59 06:59 14:59 Intake Total 540 Balance 540 Intake: Oral 540 Other: # Voids 1 1 Weight 88.451 kg Results 06/23/23 13:37 06/23/23 13:37 Cardiac Enzymes 06/23/23 06/23/23 06/23/23 Range/Units 13:37 13:37 16:48 AST 30 (17-59) U/L Troponin I <0.012 <0.012 (0.000-0.034) ng/mL 06/23/23 Range/Units 19:28 AST (17-59) U/L Troponin I <0.012 (0.000-0.034) ng/mL Coagulation 06/23/23 Range/Units 13:37 PT 11.1 (10.0-12.5) sec APTT 26.5 (22.0-30.0) sec CBC 06/23/23 Range/Units 13:37 WBC 7.0 (3.8-10.6) k/uL RBC 4.92 (4.30-5.90) m/uL Hgb 15.3 (13.0-17.5) gm/dL Hct 46.3 (39.0-53.0) % Plt Count 292 (150-450) k/uL Comprehensive Metabolic Panel 06/23/23 Range/Units 13:37 Sodium 139 (137-145) mmol/L Potassium 4.1 (3.5-5.1) mmol/L Chloride 103 (98-107) mmol/L Carbon Dioxide 28 (22-30) mmol/L BUN 17 (9-20) mg/dL Creatinine 1.17 (0.66-1.25) mg/dL Glucose 101 H (74-99) mg/dL Calcium 9.7 (8.4-10.2) mg/dL AST 30 (17-59) U/L ALT 27 (4-49) U/L Alkaline Phosphatase 77 (38-126) U/L Total Protein 7.4 (6.3-8.2) g/dL Albumin 4.4 (3.5-5.0) g/dL Current Medications Generic Name Dose Route Start Last Admin Trade Name Freq PRN Reason Stop Dose Admin Ascorbic Acid 1,000 mg 06/24/23 09:00 Ascorbic Acid 500 Mg Tab PO DAILY MICHAEL Aspirin 81 mg 06/24/23 09:00 Aspirin 81 Mg PO DAILY [facility] Cholecalciferol 50 mcg 06/24/23 09:00 Cholecalciferol 25 Mcg (1000 Iu) Tablet PO DAILY [facility] Enoxaparin Sodium 40 mg 06/24/23 09:00 Enoxaparin 40 Mg/0.4 Ml Syringe SQ DAILY [facility] Nitroglycerin 0.4 mg 06/23/23 15:10 Nitroglycerin Sl Tabs 0.4 Mg Tab SUBLINGUAL Q5M PRN Chest Pain Nitroglycerin 1 inch 06/23/23 18:00 06/24/23 05:38 Nitroglycerin Oint 1 Inch/Gm Packet TOPICAL Not Given Q6HR [facility] Zinc Sulfate 220 mg 06/24/23 09:00 Zinc Sulfate 220 Mg Cap PO DAILY MICHAEL Intake and Output 06/23/23 06/24/23 06/24/23 22:59 06:59 14:59 Intake Total 540 Balance 540 Intake: Oral 540 Other: # Voids 1 1 Weight 88.451 kg 06/23/23 13:37 06/23/23 13:37
[2023-06-24 11:51] LABS: HCT 43.7 % (39.6-50.0); HGB 14.7 g/dL (13.0-17.0); MCH 31.6 pg (27.0-32.0); MCHC 33.6 g/dL (32.0-37.0); Mean Platelet Volume 9.8 FL (9.5-12.2); NRBC Per 100 WBC 0 X 10*3/uL (0.00-0.01); Platelet Count 259 X 10*3/uL (140-440); RBC 4.65 X 10*6/uL (4.40-5.60); RDW 12.1 % (11.5-14.5); WBC 6.48 X 10*3/uL (4.50-10.00)
[2023-06-24 12:11] LABS: ALT 25 U/L (10-49); AST 19 U/L (14-35); Albumin 4.1 g/dL (3.8-4.9); Albumin/Globulin Ratio 1.78 Ratio (1.60-3.17); Alkaline Phosphatase 59 U/L (41-126); BUN/Creat Ratio 12.83 Ratio (12.00-20.00); Blood Urea Nitrogen 15.4 mg/dL (9.0-27.0); Calcium 9.4 mg/dL (8.7-10.3); Carbon Dioxide 25.8 mmol/L (21.6-31.8); Chloride 109 mmol/L (96-109); Chol/HDL Ratio 4.41 Ratio; Globulin 2.3 g/dL (1.6-3.3); Glucose 96 mg/dL (70-110); LDL Cholesterol,Calculated 112.3 mg/dL (0.0-131.0); Potassium 4.5 mmol/L (3.5-5.5); Sodium 142 mmol/L (135-145); Total Bilirubin 0.4 mg/dL (0.3-1.2); Total Protein 6.4 g/dL (6.2-8.2)
--- NOTE | 2023-06-24 13:44 | CA ---
Exercise Stress Test Report Name: Vincent Stephens Exam Date: 06/24/2023 11:30 Exam Location: [facility] Ht (in): 73 Wt (lb): 190 BSA: 2.11 Ordering Phys: Maia Pollock Referring Phys: MARISA, Technologist: Jaime Astudillo Age: 68 Gender: M : 1955 Procedure CPT: Indications: Chest Pain ICD-10 Codes: Patient History: Chest pain and palpitations Medications: Meds past 24 hrs: Pretest Chest Pain: STRESS TEST [facility] Protocol Exercise Duration (min:sec): 07:[address] Depressions (mm): Angina Score: Horton Score: Resting HR (bpm): 79 Peak HR (bpm): 155 Resting BP (mmHg): 145 / 82 Peak BP (mmHg): 206 / 77 MPHR: 152 Target HR: 129 % MPHR: 102 METS: 8.5 Total Dose: Peak Dose: Atropine: Double Product: 70286 BP Response: Stress Termination: MAX EXERTION/TARGET HR Stress Symptoms: NO SYMPTOMS Stress Summary: ECG ANALYSIS Resting ECG: Stress ECG: CONCLUSIONS Excellent exercise tolerance The patient exercised for 7 minutes on Quoc protocol Normal electrocardiogram stress testing Dr. Parker Dupont MD (Electronically Signed) Final Date: 24 June 2023 13:44
--- NOTE | 2023-06-24 15:36 | P.PN ---
Subjective Progress Note Date: 06/24/23 Hospital course: Patient is a very pleasant 68-year-old male with a past medical history of skin cancer status post removal and hernia status post recent repair 4 weeks ago. Presented to the emergency department with a chief complaint of chest pain and palpitations. Patient reports he has been experiencing intermittent "weird fluttering feeling" in his chest followed by an achiness/soreness. Patient reports today he began feeling the fluttering and achy sensation in his chest that seem to be longer lasting and more persistent lasting for a good 20 minutes and now just feels like a persistent soreness. Patient reports he took his p ulse during this time and stated that it would skip some beats and then beat really fast before skipping a couple more beats and returning to normal. Patient states he also took his blood pressure at home which was elevated so he came to the emergency department for evaluation. He denies having any dizziness, lightheadedness, diaphoresis, fever, chills, changes in vision or hearing, shortness of breath or dyspnea with exertion, nausea, vomiting, or experiencing any numbness/tingling/weakness/swelling in his extremities. He denies history of DVT or previous PE and denies history of any cardiac arrhythmias or other complaints. Patient does follow outpatient with PCP Dr. Pimentel. He underwent full evaluation in the emergency department. Vital signs upon arrival show blood pressure 181/94, heart rate 71, respiratory rate 18, temp 97.8 F, and SpO2 100% on room air. EKG was completed showing normal sinus rhythm with PACs and a right bundle branch block with QRS duration of 150 ms. C hest x-ray completed and was negative for acute cardiopulmonary process. Labs completed and reviewed. CBC, coagulation profile, BMP, and liver profile were unremarkable. Troponin was negative at less than 0.012. Patient admitted under our services with consultation to cardiology. Troponins trended overnight all negative at less than 0.012 x 3 draws. Lipid profile unremarkable with the exception of low HDL of 39.50. TSH was normal findings at 1.690. CTA chest showing no evidence of pulmonary emboli and otherwise negative for acute cardiopulmonary process. Patient was evaluated by cardiology and taken for stress test. Exercise stress test was reported to be excellent exercise toleran ce with normal electrocardiogram stress testing. Physical exam: Patient seen and fully evaluated at bedside this morning. He reports no further episodes of palpitations/weird fluttering feeling in his chest. He denies any other complaints at this time. Vital signs reviewed and stable. General: Nontoxic, no distress and appears stated age. Derm: Skin warm and dry, normal coloration for ethnicity. Head: Atraumatic, normocephalic and symmetric. Eyes: EOMs intact, no lid lag, and anicteric sclera Mouth: no lip lesions, mucus membranes moist Cardiovascular: regular rate and rhythm with normal S1S2, no murmur, positive posterior tibial pulses bilaterally, and cap refill < 2 seconds. Lungs: Respirations even, regular, and unlabored on room air. Lungs CTA bilaterally, no rhonchi, no rales, no wheezing, and no accessory muscle usage. Abdominal: soft, nontender to palpation, no guarding, no appreciable organomegaly Ext: ROM intact. No gross muscle atrophy, no edema, no contractures Neuro: Speech clear, face symmetrical and CN II-XII grossly intact with no noted focal neuro deficits Psych: Alert and oriented to person, place, time, and situation. Appropriate and pleasant affect. Assessment and Plan of Care: Chest pain and palpitations, rule out acute coronary event Hypertension Status post recent abdominal surgery for hernia repair -Cardiology consulted, appreciate recommendations -Telemetry monitoring -Trend troponins -Cardiac diet, NPO at midnight -Continue aspirin 81 mg daily -Lipid profile with a.m. labs. -Echocardiogram to be completed -Heart score is 3 -Wells score is 7.5 placing patient at high risk for pulmonary emboli, order placed for CTA chest to rule out pulmonary emboli. -Order placed for TSH with free T4 -Lovenox for DVT prophylaxis -Patient was hypertensive upon arrival with blood pressure 181/94 and heart rate of 71, currently blood pressure has improved without intervention and is 140/85 and heart rate of 69 Data and imaging reviewed: Troponins trended overnight all negative at less than 0.012 x 3 draws. Lipid profile unremarkable with the exception of low HDL of 39.50. TSH was normal findings at 1.690. CTA chest showing no evidence of pulmonary emboli and otherwise negative for acute cardiopulmonary process. Exercise stress test report reviewed stating excellent exercise tolerance with normal electrocardiogram stress testing. CODE STATUS: Full code DVT prophylaxis: Lovenox Anticipated discharge date: Within the next 24 hours, discharge delayed pending completion of echocardiogram Anticipated discharge place: Home Patient was seen independently by Nurse Practitioner. This document was prepared using [employer] dictation software. Please allow for errors in compressor battery pellets while rare they do occur. I reviewed the documentation as provided by the BREE above, who is the original author of this note. I agree with the documented assessment and plan, with the following changes: none Objective - Vital Signs Vital signs: Vital Signs Temp 98.4 F 06/24/23 07:50 Pulse 76 06/24/23 07:50 Resp 16 06/24/23 07:50 BP 121/78 06/24/23 07:50 Pulse Ox 97 06/24/23 07:50 FiO2 Intake & Output 06/23/23 06/24/23 06/24/23 18:59 06:59 18:59 Intake Total 540 Balance 540 Weight 88.451 kg Intake: Oral 540 Other: # Voids 1 - Labs CBC & Chem 7: 06/24/23 06:29 06/24/23 06:29 Labs: Abnormal Lab Results - Last 24 Hours (Table) 06/23/23 Range/Units 13:37 Glucose 101 H (74-99) mg/dL
[2023-06-24 15:46] VITALS: BP 122/77; PULSE 96; TEMP 98
--- NOTE | 2023-06-24 18:55 | P.DS ---
Providers Date of admission: 06/23/23 15:11 Expected date of discharge: 06/24/23 Attending physician: Rip Townsend MD Consults: 06/23/23 15:10 Consult Physician Urgent Consulting Provider: [facility] Consult Reason/Comments: Chest pain Do you want consulting provider notified?: Yes Primary care physician: Van Piment[facility] Course: Discharge Diagnosis: Chest pain and palpitations, acute coronary event ruled out. Hypertensio. Status post recent abdominal surgery for hernia repair. Hospital Course: Patient is a very pleasant 68-year-old male with a past medical history of skin cancer status post removal and hernia status post recent repair 4 weeks ago. Presented to the emergency department with a chief complaint of chest pain and palpitations. Patient reports he has been experiencing intermittent "weird fl uttering feeling" in his chest followed by an achiness/soreness. Patient reports today he began feeling the fluttering and achy sensation in his chest that seem to be longer lasting and more persistent lasting for a good 20 minutes and now just feels like a persistent soreness. Patient reports he took his pulse during this time and stated that it would skip some beats and then beat really fast before skipping a couple more beats and returning to normal. Patient states he also took his blood pressure at home which was elevated so he came to the emergency department for evaluation. He denies having any dizziness, lightheadedness, diaphoresis, fever, chills, changes in vision or hearing, shortness of breath or dyspnea with exertion, nausea, vomiting, or experiencing any numbness/tingling/weakness/swelling in his extremities. He denies history of DVT or previous PE and denies history of any cardiac arrhythmias or other complaints. Patient does follow outpatient with PCP Dr. Pimentel. He underwent full evaluation in the emergency department. Vital signs upon arrival show blood pressure 181/94, heart rate 71, respiratory rate 18, temp 97.8 F, and SpO2 100% on room air. EKG was completed showing normal sinus rhythm with PACs and a right bundle branch block with QRS duration of 150 ms. Chest x-ray completed and was negative for acute cardiopulmonary process. Labs completed and reviewed. CBC, coagulation profile, BMP, and liver profile were unremarkable. Troponin was negative at less than 0.012. Patient admitted under our services with consultation to cardiology. Troponins trended overnight all negative at less than 0.012 x 3 draws. Lipid profile unremarkable with the exception of low HDL of 39.50. TSH was normal findings at 1.690. CTA chest showing no evidence of pulmonary emboli and otherwise negative for acute cardiopulmonary process. Patient was evaluated by cardiology and taken for stress test. Exercise stress test was reported to be excellent exercise tolerance with normal electrocardiogram stress testing. Echocardiogram was completed and not available for results at this time. Cardiology clearing patient from cardiac perspective stating patient to follow-up in their office for echocardiogram results. Patient is free from any chest pain or discomfort at this time, denies any further episodes of palpitations. Patient medically stable for discharge and to follow-up outpatient with PCP in 1 to 2 days and with cardiology in 1 week. Physical exam: Vital signs reviewed and stable. General: Nontoxic, no distress and appears stated age. Derm: Skin warm and dry, normal coloration for ethnicity. Head: Atraumatic, normocephalic and symmetric. Eyes: EOMs intact, no lid lag, and anicteric sclera Mouth: no lip lesions, mucus membranes moist Cardiovascular: regular rate and rhythm with normal S1S2, no murmur, positive posterior tibial pulses bilaterally, and cap refill < 2 seconds. Lungs: Respirations even, regular, and unlabored on room air. Lungs CTA bilaterally, no rhonchi, no rales, no wheezing, and no accessory muscle usage. Abdominal: soft, nontender to palpation, no guarding, no appreciable organomegaly Ext: ROM intact. No gross muscle atrophy, no edema, no contractures Neuro: Speech clear, face symmetrical and CN II-XII grossly intact with no noted focal neuro deficits Psych: Alert and oriented to person, place, time, and situation. Appropriate and pleasant affect. A total of 31 minutes of time were spent preparing this complex discharge summary. Pt was discharged on 06/24/2023 at 6:49 PM. Patient was seen independently by Nurse Practitioner. This document was prepared using [employer] dictation software. Please allow for errors in despatch clerk while rare they do occur. Ezekiel German NP rendered care for this patient independently, reviewed the findings and plan as documented in the note above. I did not physically speak with or examine the patient on this date. Patient Condition at Discharge: Stable Plan - Discharge Summary New Discharge Prescriptions: Continue Cholecalciferol [Vitamin D3 (25 Mcg = 1000 Iu)] 50 mcg PO DAILY Aspirin [Adult Low Dose Aspirin EC] 81 mg PO DAILY Zinc Gluconate [Zinc] 50 mg PO DAILY Quercetin(Unknown Dose) 1 tab PO DAILY Ascorbic Acid [Vitamin C] 1,000 mg PO DAILY Discharge Medication List Ascorbic Acid [Vitamin C] 1,000 mg PO DAILY 10/24/20 [History] Aspirin [Adult Low Dose Aspirin EC] 81 mg PO DAILY 10/24/20 [History] Cholecalciferol [Vitamin D3 (25 Mcg = 1000 Iu)] 50 mcg PO DAILY 10/24/20 [History] Quercetin(Unknown Dose) 1 tab PO DAILY 06/23/23 [History] Zinc Gluconate [Zinc] 50 mg PO DAILY 06/23/23 [History] Follow up Appointment(s)/Referral(s): Miguel Ángel Pimentel MD [Primary Care Provider] - 1-2 days Parker Dupont MD [STAFF PHYSICIAN] - 1 Week Activity/Diet/Wound Care/Special Instructions: Activity: As tolerated. Take breaks as needed. Diet: Heart healthy and carb consistent diet. Avoid salts, or foods with hidden salts such as canned or boxed foods and frozen dinners. Extra salt makes your heart work harder and traps the fluid in your body for longer. Special Instructions: Take all of your medications as directed and remember to keep all of your doctor's appointments and follow-up as needed. Per cardiology, you will need to follow-up outpatient in their office for echocardiogram results as they are not available at the time of your discharge. Thank you for allowing us to participate in your care, it was truly a pleasure having you for our patient!!! Discharge Disposition: HOME SELF-CARE
--- NOTE | 2023-06-25 09:45 | CA ---
Transthoracic Echo Report Name: Vincent Stephens Age: 68 Gender: M : 1955 Exam Date: 06/24/2023 16:02 Exam Location: [facility] Ht (in): 72 Wt (lb): 195 Ordering Physician: Ezekiel German Attending/Referring Phys: Equine Manager Carolee Pugh RDCS Procedure CPT: Indications: Evaluate structure and function of heart Cardiac Hx: Technical Quality: Fair Contrast 1: Total Dose (mL): Contrast 2: Total Dose (mL): MEASUREMENTS (Male / Female) Normal Values 2D ECHO LV Diastolic Diameter PLAX 3.7 cm 4.2 - 5.9 / 3.9 - 5.3 cm LV Systolic Diameter PLAX 2.2 cm IVS Diastolic Thickness 1.2 cm 0.6 - 1.0 / 0.6 - 0.9 cm LVPW Diastolic Thickness 1.3 cm 0.6 - 1.0 / 0.6 - 0.9 cm LV Relative Wall Thickness 0.7 RV Internal Dim ED PLAX 3.9 cm LA Volume 45.7 cm??? 18 - 58 / 22 - 52 cm??? LA Volume Index 21.4 cm???/m??? 16 - 28 cm???/m??? M-MODE Aortic Root Diameter MM 3.1 cm LA Systolic Diameter MM 4.0 cm LA Ao Ratio MM 1.3 AV Cusp Separation MM 2.5 cm DOPPLER AV Peak Velocity 122.5 cm/s AV Peak Gradient 6.0 mmHg AV Mean Velocity 85.7 cm/s AV Mean Gradient 3.3 mmHg AV Velocity Time Integral 23.5 cm LVOT Peak Velocity 114.6 cm/s LVOT Peak Gradient 5.3 mmHg LVOT Velocity Time Integral 20.6 cm MV Area PHT 3.8 cm??? Mitral E Point Velocity 67.2 cm/s Mitral A Point Velocity 68.5 cm/s Mitral E to A Ratio 1.0 MV Deceleration Time 197.9 ms MV E' Velocity 8.1 cm/s Mitral E to MV E' Ratio 8.3 TR Peak Velocity 222.7 cm/s TR Peak Gradient 19.8 mmHg Right Ventricular Systolic Press 24.4 mmHg FINDINGS Left Ventricle Mildly increased left ventricular wall thickness. Left ventricular cavity size normal. Normal left ventricular systolic function. No obvious regional wall motion abnormalities. Left ventricular ejection fraction is estimated at 55-60 %. Right Ventricle Mild right ventricular dilatation. Right ventricular systolic pressure within normal limits. Right Atrium Normal right atrial size. Left Atrium Normal left atrial size. Mitral Valve Structurally normal mitral valve. Mild mitral annular calcification. Mild mitral regurgitation. Aortic Valve Trileaflet aortic valve. No aortic valve stenosis or regurgitation. Tricuspid Valve Structurally normal tricuspid valve. Mild tricuspid regurgitation. Pulmonic Valve Structurally normal pulmonic valve. Pericardium No pericardial effusion. Aorta Normal size aortic root and proximal ascending aorta. CONCLUSIONS Left ventricular ejection fraction is estimated at 55-60 %. No obvious regional wall motion abnormalities. Mild RV dilatation with normal systolic function. No significant valvular dysfunction other than mild MR and mild Previewed by: Dr Khoa Owen (Electronically Signed) Final Date: 25 June 2023 09:44
== END 2023-06-24 19:49 | disposition home or self-care (01) ==
LOC: EC 13:01 → 6NMEDSUR 15:11
PROVIDERS: ADMIT Family Medicine; ATTEND Family Medicine
DX: R07.89 Other chest pain (principal); R00.2 Palpitations; I10 Essential (primary) hypertension; Z85.828 Personal history of other malignant neoplasm of skin; Z87.891 Personal history of nicotine dependence; Z79.82 Long term (current) use of aspirin
CPT/HCPCS: 96372; 99285; 36415; 93005; 93017; 93306; 80061; 80053 ×2; 84443; 83735 ×2; 84484; 85025; 85027; 85610; 85730; 71046; 71275; G0378 ×2; J1650

== ENCOUNTER → 2024-03-07 | Outpatient (CLI) | payer MEDICARE ==
[2024-03-07 10:27] LABS: ALT 24 U/L (10-49); AST 23 U/L (14-35); LDL Cholesterol,Calculated 122.5 mg/dL (0.0-131.0); VLDL Calculation 19.22 mg/dL (5.00-40.00)
== END | disposition home or self-care (01) ==
LOC: LABWHC1 07:05
PROVIDERS: ATTEND Internal Medicine Interventional Cardiology
DX: E78.2 Mixed hyperlipidemia (principal)
CPT/HCPCS: 36415; 80061; 84450; 84460

== ENCOUNTER 2024-09-09 09:45 | Emergency (ER) | payer MEDICARE ==
--- NOTE | 2024-09-09 10:30 | ED ---
Dizziness HPI - General Chief Complaint: Dizziness Stated Complaint: dizziness Time Seen by Provider: 09/09/24 10:00 Source: patient, RN notes reviewed, old records reviewed Mode of arrival: EMS Limitations: no limitations - History of Present Illness Initial Comments: 69-year male presented to ER for evaluation of dizziness. Patient has a past medical history significant of vertigo and is following up closely with ENT, Dr. Upton for this issue. He has had extensive workup outpatient for a "right middle ear issue. He reports on Thursday he was walking around [place] and started to feel dizzy given the commotion. Patient states since then he has been having continued dizziness along with nausea. He states this morning he started to have muffling of auditory ability to right ear. He states this did resolve and he did have an episode of dizziness that did affect his balance. He admits to 1 episode of vomiting since exacerbation of symptoms on Thursday. He did take half a dose of meclizine this morning. Patient states his symptoms do feel similar to his vertigo but feel "more intense". This concerned patient wh ich prompted emergency department visit. He denies any headache, double vision, head injuries, fevers, chills, chest pain, shortness of breath or other complaints at this time. - Related Data Home Medications Medication Instructions Recorded Confirmed Ascorbic Acid [Vitamin C] 1,000 mg PO DAILY@109910/24/20 05/16/24 Aspirin [Adult Low Dose Aspirin EC] 81 mg PO DAILY@109910/24/20 05/16/24 Cholecalciferol [Vitamin D3 (25 50 mcg PO DAILY@109910/24/20 05/16/24 Mcg = 1000 Iu)] Quercetin(Unknown Dose) 1 tab PO DAILY@109906/23/23 05/16/24 Zinc Gluconate [Zinc] 50 mg PO DAILY@109906/23/23 05/16/24 Clark-3/Dha/Epa/Fish Oil [Clark-3 1 cap PO DAILY@109905/16/24 05/16/24 Fish Oil 1,000 mg Sfgl] Previous Rx's Medication Instructions Recorded Meclizine [Antivert] 25 mg PO Q6HR PRN #30 tab 05/17/24 Scopolamine [Scopolamine 1 MG/72 1 patch TRANSDERM Q72H PRN #3 patch 05/17/24 HR patch] Allergies Allergy/AdvReac Type Severity Reaction Status Date / Time lanolin Allergy Rash/Hives Verified 09/09/24 09:58 Review of Systems ROS Statement: Those systems with pertinent positive or pertinent negative responses have been documented in the HPI. ROS Other: All systems not noted in ROS Statement are negative. Past Medical History Past Medical History: Cancer Additional Past Medical History / Comment(s): Hx palpitiations, f/u EKG nl. Skin cancer on nose. History of Any Multi-Drug Resistant Organisms: None Reported Past Surgical History: Hernia Repair, Orthopedic Surgery Additional Past Surgical History / Comment(s): Skin cancer exc. Rt Knee scope. Colonoscopy. Bilat cataracts Past Anesthesia/Blood Transfusion Reactions: Motion Sickness, Postoperative Nausea & Vomiting (PONV) Additional Past Anesthesia/Blood Transfusion Reaction / Comment(s): PONV w/ knee surg. Past Psychological History: No Psychological Hx Reported Smoking Status: Current every day smoker Past Alcohol Use History: Rare Past Drug Use History: None Reported - Past Family History Mother Family Medical History: No Reported History General Exam Limitations: no limitations General appearance: alert, in no apparent distress Head exam: Present: atraumatic, normocephalic, normal inspection Eye exam: Present: normal appearance, PERRL, EOMI. Absent: scleral icterus, conjunctival injection, periorbital swelling Pupils: Present: normal accommodation ENT exam: Present: normal exam, normal oropharynx, mucous membranes moist, TM's normal bilaterally Respiratory exam: Present: normal lung sounds bilaterally. Absent: respiratory distress, wheezes, rales, rhonchi, stridor Cardiovascular Exam: Present: regular rate, normal rhythm, normal heart sounds. Absent: systolic murmur, diastolic murmur, rubs, gallop, clicks Extremities exam: Present: normal inspection, full ROM, normal capillary refill. Absent: tenderness, pedal edema, joint swelling, calf tenderness Neurological exam: Present: alert, oriented X3, CN II-XII intact Skin exam: Present: warm, dry, intact, normal color. Absent: rash Course Vital Signs 09/09/24 09/09/24 09/09/24 10:05 11:26 13:02 Temperature 97.6 F 98 F 98 F Pulse Rate 74 72 70 Respiratory 18 16 16 Rate Blood Pressure 146/91 146/82 138/76 O2 Sat by Pulse 100 99 99 Oximetry EKG Findings - EKG Comments: EKG Findings:: EKG taken at 10: 27 showing a sinus rhythm. No ST segment elevations or depressions. Right bundle branch block. No T wave versions. Ventricular rate 66, ND interval 112, QRS duration 142, QT/QTc 392/406 Medical Decision Making - Medical Decision Making Was pt. sent in by a medical professional or institution (, PA, SECURITY SOLUTIONS ARCHITECT, urgent care, hospital, or prison...) When possible be specific @ -No Did you speak to anyone other than the patient for history (EMS, parent, family, police, friend...)? What history was obtained from this source @ -No Did you review nursing and triage notes (agree or disagree)? Why? @ -I reviewed and agree with nursing and triage notes Were old charts reviewed (outside hosp., previous admission, EMS record, old EKG, old radiological studies, urgent care reports/EKG's, prison records)? Report findings @ -Discharge summary from admission on 05 15 24. Patient had extensive workup regarding intractable vertigo including brain MRI which was negative. Patient was ultimately discharged with a prescription of meclizine and scopolamine patch and advised to follow-up with ENT. Differential Diagnosis (chest pain, altered mental status, abdominal pain women, abdominal pain men, vaginal bleeding, weakness, fever, dyspnea, syncope, headache, dizziness, GI bleed, back pain, seizure, CVA, palpatations, mental health, musculoskeletal)? @ -Differential Dizziness:Benign paroxysmal positional Vertigo, Meniere's disease, otitis media, acoustic neuroma, vertebrobasilar insufficiency, cerebellar stroke, encephalitis, hypovolemic, arrhythmia, coronary artery syndrome, anemia, this is not meant to be an all-inclusive list EKG interpreted by me (3pts min.). @ -As above X-rays interpreted by me (1pt min.). @ -None done CT interpreted by me (1pt min.). @ -None done U/S interpreted by me (1pt. min.). @ -None done What testing was considered but not performed or refused? (CT, X-rays, U/S, labs)? Why? @ -CT brain deferred at this time as patient reports dizziness is similar to previous vertigo flares. Patient has had extensive CT and MRI workup to evaluate this. What meds were considered but not given or refused? Why? @ -None Did you discuss the management of the patient with other professionals (professionals i.e. , PA, SECURITY SOLUT[employer] ARCHITECT, lab, RT, psych nurse, healthcare social worker, ophthalmic aide, teacher, information officer, bilingual patient support caseworker)? Give summary @ -No Was smoking cessation discussed for >3mins.? @ -No Was critical care preformed (if so, how long)? @ -No Were there social determinants of health that impacted care today? How? (Homelessness, low income, unemployed, alcoholism, drug addiction, transportation, low edu. Level, literacy, decrease access to med. care, alf, rehab)? @ -No Was there de-escalation of care discussed even if they declined (Discuss DNR or withdrawal of care, Hospice)? DNR status @ -No What co-morbidities impacted this encounter? (DM, HTN, Smoking, COPD, CAD, Cancer, CVA, ARF, Chemo, Hep., AIDS, mental health diagnosis, sleep apnea, morbid obesity)? @ -Vertigo Was patient admitted / discharged? Hospital course, mention meds given and route, prescriptions, significant lab abnormalities, going to OR and other pertinent info. @ -Discharge. 69-year-old male presented the ER via EMS for evaluation of dizziness. Vital signs stable. Patient in no signs of acute distress nontoxic- appearing. There are no acute neurological findings on exam. Laboratory studies obtained unimpressive. Troponin undetectable,<0.012. EKG showing a sinus rhythm no ST segment elevations or depressions. Similar from prior. Urinalysis small blood noted. No infection. Patient provided with IV fluids and Reglan with some improvement of dizziness. Upon reevaluation, patient is eager for discharge. Patient was seen ambulating without difficulty in the e mergency department. Symptoms believed to be stemming from vertigo. He will be discharged stable condition and advised to follow-up closely with PCP and ENT. Return parameters discussed. Patient verbally expressed understanding agree with care plan. Case discussed with ED attending of Dr. Baig. Undiagnosed new problem with uncertain prognosis? @ -No Drug Therapy requiring intensive monitoring for toxicity (Heparin, Nitro, Insulin, Cardizem)? @ -No Were any procedures done? @ -No Diagnosis/symptom? @ -Dizziness Acute, or Chronic, or Acute on Chronic? @ -Acute Uncomplicated (without systemic symptoms) or Complicated (systemic symptoms)? @ -Complicated Side effects of treatment? @ -No Exacerbation, Progression, or Severe Exacerbation? @ -No Poses a threat to life or bodily function? How? (Chest pain, [place], [place], pneumonia, PE, COPD, DKA, ARF, appy, cholecystitis, CVA, Diverticulitis, Homicidal, Suicidal, threat to staff... and all critical care pts) @ -Low at this time - Lab Data Result diagrams: 09/09/24 10:40 09/09/24 10:40 Lab Results 09/09/24 09/09/24 09/09/24 Range/Units 10:40 10:40 10:40 WBC 8.49 (4.50-10.00) 10*3/uL RBC 4.93 (4.40-5.60) 10*6/uL Hgb 15.7 (13.0-17.0) g/dL Hct 45.4 (39.6-50.0) % MCV 92.1 (80.0-97.0) fL MCH 31.8 (27.0-32.0) pg MCHC 34.6 (32.0-37.0) g/dL Plt Count 248 (140-440) 10*3/uL MPV 9.3 L (9.5-12.2) fL Immature Gran % (Auto) 0.5 % Neutrophils % 74.8 % Lymphocytes % 14.5 % Monocytes % 6.9 % Eosinophils % 2.6 % Basophils % 0.7 % Immature Gran # 0.04 (0.00-0.04) 10*3/uL Neutrophils # 6.35 (1.80-7.70) 10*3/uL Lymphocytes # 1.23 (0.90-5.00) 10*3/uL Monocytes # 0.59 (0.20-1.00) 10*3/uL Eosinophils # 0.22 (0.04-0.35) 10*3/uL Basophils # 0.06 (0.00-0.10) 10*3/uL PT 11.4 (10.0-12.5) sec INR 1.0 (<1.2) APTT 24.9 (22.0-30.0) sec Sodium (137-145) mmol/L Potassium (3.5-5.1) mmol/L Chloride (98-107) mmol/L Carbon Dioxide (22-30) mmol/L Anion Gap mmol/L BUN (9-20) mg/dL Creatinine (0.66-1.25) mg/dL Est GFR (CKD-EPI)AfAm (>60 ml/min/1.73 sqM) Est GFR (CKD-EPI)NonAf (>60 ml/min/1.73 sqM) Glucose (74-99) mg/dL Calcium (8.4-10.2) mg/dL Total Bilirubin (0.2-1.3) mg/dL AST (17-59) U/L ALT (4-49) U/L Alkaline Phosphatase (38-126) U/L Troponin I (0.000-0.034) ng/mL Total Protein (6.3-8.2) g/dL Albumin (3.5-5.0) g/dL Urine Color Yellow Urine Appearance Clear (Clear) Urine pH 6.0 (5.0-8.0) Ur Specific Girard 1.021 (1.001-1.035) Urine Protein Negative (Negative) Urine Glucose (UA) Negative (Negative) Urine Ketones Negative (Negative) Urine Blood Small H (Negative) Urine Nitrite Negative (Negative) Urine Bilirubin Negative (Negative) Urine Urobilinogen <2.0 (<2.0) mg/dL Ur Leukocyte Esterase Negative (Negative) Urine RBC 4 (0-5) /hpf Urine WBC 1 (0-5) /hpf Urine Mucus Occasional H (None) /hpf 09/09/24 09/09/24 Range/Units 10:40 10:40 WBC (4.50-10.00) 10*3/uL RBC (4.40-5.60) 10*6/uL Hgb (13.0-17.0) g/dL Hct (39.6-50.0) % MCV (80.0-97.0) fL MCH (27.0-32.0) pg MCHC (32.0-37.0) g/dL Plt Count (140-440) 10*3/uL MPV (9.5-12.2) fL Immature Gran % (Auto) % Neutrophils % % Lymphocytes % % Monocytes % % Eosinophils % % Basophils % % Immature Gran # (0.00-0.04) 10*3/uL Neutrophils # (1.80-7.70) 10*3/uL Lymphocytes # (0.90-5.00) 10*3/uL Monocytes # (0.20-1.00) 10*3/uL Eosinophils # (0.04-0.35) 10*3/uL Basophils # (0.00-0.10) 10*3/uL PT (10.0-12.5) sec INR (<1.2) APTT (22.0-30.0) sec Sodium 139 (137-145) mmol/L Potassium 4.2 (3.5-5.1) mmol/L Chloride 103 (98-107) mmol/L Carbon Dioxide 28 (22-30) mmol/L Anion Gap 8 mmol/L BUN 20 (9-20) mg/dL Creatinine 1.04 (0.66-1.25) mg/dL Est GFR (CKD-EPI)AfAm 85 (>60 ml/min/1.73 sqM) Est GFR (CKD-EPI)NonAf 73 (>60 ml/min/1.73 sqM) Glucose 104 H (74-99) mg/dL Calcium 9.5 (8.4-10.2) mg/dL Total Bilirubin 0.7 (0.2-1.3) mg/dL AST 35 (17-59) U/L ALT 52 H (4-49) U/L Alkaline Phosphatase 64 (38-126) U/L Troponin I <0.012 (0.000-0.034) ng/mL Total Protein 7.4 (6.3-8.2) g/dL Albumin 4.4 (3.5-5.0) g/dL Urine Color Urine Appearance (Clear) Urine pH (5.0-8.0) Ur Specific Girard (1.001-1.035) Urine Protein (Negative) Urine Glucose (UA) (Negative) Urine Ketones (Negative) Urine Blood (Negative) Urine Nitrite (Negative) Urine Bilirubin (Negative) Urine Urobilinogen (<2.0) mg/dL Ur Leukocyte Esterase (Negative) Urine RBC (0-5) /hpf Urine WBC (0-5) /hpf Urine Mucus (None) /hpf Disposition Clinical Impression: Vertigo Disposition: HOME SELF-CARE Condition: Stable Instructions (If sedation given, give patient instructions): Dizziness (ED) Additional Instructions: Follow-up with ENT. Return to the ER for any new or worsening concerns. Is patient prescribed a controlled substance at d/c from ED?: No Referrals: Miguel Ángel Pimentel MD [Primary Care Provider] - 1-2 days Salvatore Upton MD [STAFF PHYSICIAN] - 1-2 days Time of Disposition: 12:48
[2024-09-09 10:51] LABS: Basophils # (A) 0.06 10*3/uL (0.00-0.10); Basophils % (A) 0.7 %; Eosinophils # (A) 0.22 10*3/uL (0.04-0.35); Eosinophils % (A) 2.6 %; HCT 45.4 % (39.6-50.0); HGB 15.7 g/dL (13.0-17.0); Lymphocytes # (A) 1.23 10*3/uL (0.90-5.00); Lymphocytes % (A) 14.5 %; MCH 31.8 pg (27.0-32.0); MCHC 34.6 g/dL (32.0-37.0); MCV 92.1 fL (80.0-97.0); Mean Platelet Volume 9.3 fL (9.5-12.2); Monocytes # (A) 0.59 10*3/uL (0.20-1.00); Monocytes % (A) 6.9 %; Neutrophils # (A) 6.35 10*3/uL (1.80-7.70); Neutrophils % (A) 74.8 %; Platelet Count 248 10*3/uL (140-440); RBC 4.93 10*6/uL (4.40-5.60); WBC 8.49 10*3/uL (4.50-10.00)
[2024-09-09 11:11] LABS: ALT 52 U/L (4-49); AST 35 U/L (17-59); African American GFR (CKD) 85 (>60 ml/min/1.73 sqM); Albumin 4.4 g/dL (3.5-5.0); Alkaline Phosphatase 64 U/L (38-126); Anion Gap 8 mmol/L; Blood Urea Nitrogen 20 mg/dL (9-20); Calcium 9.5 mg/dL (8.4-10.2); Carbon Dioxide 28 mmol/L (22-30); Chloride 103 mmol/L (98-107); Glucose 104 mg/dL (74-99); Non-African American GFR(CKD) 73 (>60 ml/min/1.73 sqM); Potassium 4.2 mmol/L (3.5-5.1); Sodium 139 mmol/L (137-145); Total Bilirubin 0.7 mg/dL (0.2-1.3); Total Protein 7.4 g/dL (6.3-8.2)
[2024-09-09 11:12] LABS: Appearance,Urine Clear (Clear); Bilirubin,Urine Negative (Negative); Blood,Urine Small (Negative); Color,Urine Yellow; Glucose,Urine (UA) Negative (Negative); Ketones,Urine Negative (Negative); Leukocyte Esterase,Urine Negative (Negative); Mucus,Urine Occasional /hpf; Nitrite,Urine Negative (Negative); Protein,Urine Negative (Negative); RBC,Urine 4 /hpf (0-5); Specific Gravity,Urine 1.021 (1.001-1.035); Urobilinogen,Urine <2.0 mg/dL (<2.0); WBC,Urine 1 /hpf (0-5)
[2024-09-09 11:16] LABS: Partial Thromboplastin Time 24.9 sec (22.0-30.0); Prothrombin Time 11.4 sec (10.0-12.5)
[2024-09-09 11:28] VITALS: RESP 16; TEMP 98
[2024-09-09] MEDS ORDERED: ONDANSETRON 4 MG/2 ML VIAL IVP STA (11:28)
[2024-09-09] MEDS: SODIUM CHLORIDE 0.9% 1,000 ML IV ONE (11:45)
[2024-09-09] MEDS: METOCLOPRAMIDE 5 MG/ML 2 ML VIAL IVP STA (12:08)
[2024-09-09 13:04] VITALS: BP 138/76; PULSE 70
== END 2024-09-09 13:02 | disposition home or self-care (01) ==
LOC: EC 09:45
DX: R42 Dizziness and giddiness (principal); F17.200 Nicotine dependence, unspecified, uncomplicated; Z88.8 Allergy status to other drugs, medicaments and biological substances
CPT/HCPCS: 36415; 93005; 80053; 84484; 85025; 85610; 85730; 81001; 99284; 96374; 96361; J2765

== ENCOUNTER → 2024-09-30 | Outpatient (CLI) | payer MEDICARE ==
[2024-09-30 15:13] LABS: African American GFR (CKD) 69 (>60 ml/min/1.73 sqM); Blood Urea Nitrogen 28 mg/dL (9-20); Non-African American GFR(CKD) 59 (>60 ml/min/1.73 sqM)
--- NOTE | 2024-10-01 07:19 | CT ---
EXAMINATION TYPE: CT iac wo/w con DATE OF EXAM: 09/30/2024 3:52 PM COMPARISON: None. CLINICAL INDICATION: Male, 69 years old with history of H93.19 TINNITUS, UNSPECIFIED EAR, vertigo and tinnitus TECHNIQUE: Contrast used:80 ml mL of Isovue 300 with IV Contrast, (none if empty) Oral contrast used: (none if empty) Axial images at 5 mm thick sections. Reconstructed images in the coronal and sagittal planes. FINDINGS: Mastoid air cells are clear. Semicircular canals are intact. Cochlea appear normal. Incus and malleus in normal orientation. Internal auditory canal appears normal without expansion or erosion. Middle e ars are clear. Scutum. External auditory canals are clear. Attics are clear. No suspicious cerebellar pontine angle masses are evident. Vertebral basilar arteries are normal Port ions of the brain within the field of view are unremarkable. Paranasal sinuses are clear. Torus tubarius fossa of Rosenmuller are normal. IMPRESSION: 1. NO ACUTE CT ABNORMALITY INTERNAL AUDITORY CANALS [facility], , 10/01/2024 7:17 AM
== END | disposition home or self-care (01) ==
LOC: RADCTMAIN 14:37
PROVIDERS: ATTEND Otolaryngology
DX: H93.19 Tinnitus, unspecified ear (principal); R42 Dizziness and giddiness; H91.90 Unspecified hearing loss, unspecified ear
CPT/HCPCS: 82565; 84520; 70482; 36415; Q9967

== ENCOUNTER 2024-10-01 21:49 | Emergency (ER) | payer MEDICARE ==
--- NOTE | 2024-10-01 21:59 | ED ---
Chest Pain HPI <Miguel Ángel Meyers - Last Filed: 10/01/24 21:58> - General Source: patient, RN notes reviewed, old records reviewed <Adrien Torrez - Last Filed: 10/02/24 09:00> - General Chief Complaint: Dizziness Stated Complaint: vertigo Time Seen by Provider: 10/01/24 21:56 - History of Present Illness Initial Comments: 69-year-old male who presents emergency department complaining of vertigo with nausea and vomiting. Patient was triaged as chest pain because EMS was concerned for possible ST segment elevations on EKG which were not present. He denies any chest pain or shortness of breath. His complaint is for vertigo which is chronic for the patient with nausea and vomiting. Has chronic vertigo that has been ongoing since May of this year. Has been receiving numerous workups with no clear etiology for it. Does have meclizine and Zofran at home however states that the Zofran was not working as he was unable to use it before he started throwing up. States his vertigo is slightly worse than baseline at this time. Denies any new symptoms. Presents for further evaluation. (Adrien Torrez) - Related Data Home Medications Medication Instructions Recorded Confirmed Ascorbic Acid [Vitamin C] 1,000 mg PO DAILY@109910/24/20 05/16/24 Aspirin [Adult Low Dose Aspirin EC] 81 mg PO DAILY@109910/24/20 05/16/24 Cholecalciferol [Vitamin D3 (25 50 mcg PO DAILY@109910/24/20 05/16/24 Mcg = 1000 Iu)] Quercetin(Unknown Dose) 1 tab PO DAILY@109906/23/23 05/16/24 Zinc Gluconate [Zinc] 50 mg PO DAILY@109906/23/23 05/16/24 Mcdonald-3/Dha/Epa/Fish Oil [Mcdonald-3 1 cap PO DAILY@109905/16/24 05/16/24 Fish Oil 1,000 mg Sfgl] Previous Rx's Medication Instructions Recorded Meclizine [Antivert] 25 mg PO Q6HR PRN #30 tab 05/17/24 Scopolamine [Scopolamine 1 MG/72 1 patch TRANSDERM Q72H PRN #3 patch 05/17/24 HR patch] Allergies Allergy/AdvReac Type Severity Reaction Status Date / Time lanolin Allergy Rash/Hives Verified 09/09/24 09:58 Review of Systems ROS Other: All systems not noted in ROS Statement are negative. <Miguel Ángel Meyers - Last Filed: 10/01/24 21:58> ROS Other: All systems not noted in ROS Statement are negative. <Adrien Torrez - Last Filed: 10/02/24 09:00> ROS Statement: Those systems with pertinent positive or pertinent negative responses have been documented in the HPI. Review of Systems: CONST: Denies fever EYES: Denies blurry vision ENT: Denies nasal congestion C/V: Denies Chest pain RESP: Denies shortness of breath GI: Denies abdominal pain : Denies dysuria SKIN: Denies rash. MSK: Denies joint pain. NEURO: Denies headache (Adrien Torrez) EKG Findings - EKG Comments: EKG Findings:: 12-lead Electrocardiogram Interpretation Note. EKG was reviewed and interpreted by myself. 12-lead ECG performed at 2155 is interpreted by me as revealing normal sinus rhythm at a rate of 75 beats per minute. [place] is normal. CA interval is 150 ms, QRS duration is 146 ms, QTc is of 129 ms. Right bundle branch block morphology present.. There were no ST or T wave abnormalities to suggest myocardial ischemia or injury. R wave progression across the precordium was satisfactory. By my interpretation this EKG is non-diagnostic for acute ischemia. Compared with EKG from September 09, 2024 with no significant acute change. - EKG Results: EKG: interpreted by ERMD <Adrien Torrez - Last Filed: 10/02/24 09:00> Past Medical History Past Medical History: Cancer Additional Past Medical History / Comment(s): Hx palpitiations, f/u EKG nl. Skin cancer on nose. History of Any Multi-Drug Resistant Organisms: None Reported Past Surgical History: Hernia Repair, Orthopedic Surgery Additional Past Surgical History / Comment(s): Skin cancer exc. Rt Knee scope. Colonoscopy. Bilat cataracts Past Anesthesia/Blood Transfusion Reactions: Motion Sickness, Postoperative Nausea & Vomiting (PONV) Additional Past Anesthesia/Blood Transfusion Reaction / Comment(s): PONV w/ knee surg. Past Psychological History: No Psychological Hx Reported Smoking Status: Current every day smoker Past Alcohol Use History: Rare Past Drug Use History: None Reported - Past Family History Mother Family Medical History: No Reported History <Miguel Ángel Meyers Alejandra - Last Filed: 10/01/24 21:58> General Exam <Adrien Torrez - Last Filed: 10/02/24 09:00> - General Exam Comments Initial Comments: General: Appears in no acute distress. HEAD: Normal with no signs of head trauma. EYES: PERRLA, EOMI, conjunctiva normal, no discharge. Pupils are 3 mm and equal bilaterally. ENT: Hearing grossly intact, normal oropharynx. RESPIRATORY: Clear breath sounds bilaterally. No wheezes, rales, or rhonchi. C/V: Regular rate and rhythm. S1 and S2 auscultated, no edema, peripheral pulses 2+ and intact throughout ABD: Abd is soft, nontender, nondistended EXT: Normal range of motion, no obvious deformity SKIN: No rashes or lesions observed on exposed skin. NEURO: Alert and oriented x 4. Cranial nerves II-XII intact. No focal sensory or strength deficits. NIH of 0. Cerebellar function intact as evident by normal finger-nose testing, normal [id number] testing. Absence of dysdiadochokinesia. (Adrien Torrez) Course Vital Signs 10/01/24 10/02/24 10/02/24 21:52 00:00 01:56 Temperature 98.5 F 98.4 F Pulse Rate 77 82 86 Respiratory 18 18 18 Rate Blood Pressure 145/88 133/77 117/72 O2 Sat by Pulse 99 98 97 Oximetry Chest Pain MDM <Adrien Torrez - Last Filed: 10/02/24 09:00> - MDM Was pt. sent in by a medical professional or institution (, PA, [employer]ER, urgent care, hospital, or usp...) When possible be specific @ -No Did you speak to anyone other than the patient for history (EMS, parent, family, police, friend...)? What history was obtained from this source @ -No Did you review nursing and triage notes (agree or disagree)? Why? @ -I reviewed and agree with nursing and triage notes Were old charts reviewed (outside hosp., previous admission, EMS record, old EKG, old radiological studies, urgent care reports/EKG's, usp records)? Report findings @ -CT imaging from yesterday which showed no obvious acute process. Differential Diagnosis (chest pain, altered mental status, abdominal pain women, abdominal pain men, vaginal bleeding, weakness, fever, dyspnea, syncope, headache, dizziness, GI bleed, back pain, seizure, CVA, palpatations, mental health, musculoskeletal)? @ -Chronic vertigo, electrolyte abnormality, viral syndrome. This list is not all-inclusive. EKG interpreted by me (3pts min.). @ -As above X-rays interpreted by me (1pt min.). @ -None done CT interpreted by me (1pt min.). @ -None done U/S interpreted by me (1pt. min.). @ -None done What testing was considered but not performed or refused? (CT, X-rays, U/S, labs)? Why? @ -None What meds were considered but not given or refused? Why? @ -None Did you discuss the management of the patient with other professionals (ita sue i.e. , PA, [employer]ER, lab, RT, psych nurse, social staff worker, bellstaff, teacher, protection officer, insurance case manager)? Give summary @ -No Was smoking cessation discussed for >3mins.? @ -No Was critical care preformed (if so, how long)? @ -No Were there social determinants of health that impacted care today? How? (Homelessness, low income, unemployed, alcoholism, drug addiction, transportation, low edu. Level, literacy, decrease access to med. care, fpc, rehab)? @ -No Was there de-escalation of care discussed even if they declined (Discuss DNR or withdrawal of care, Hospice)? DNR status @ -No What co-morbidities impacted this encounter? (DM, HTN, Smoking, COPD, CAD, Cancer, CVA, ARF, Chemo, Hep., AIDS, mental health diagnosis, sleep apnea, morbid obesity)? @ -None Was patient admitted / discharged? Hospital course, mention meds given and route, prescriptions, significant lab abnormalities, going to OR and other pertinent info. @ -Based on the patient's presentation and physical exam, presents for chronic vertigo. As stated in the HPI, was triaged as chest pain due to concern for ST segment changes on EKG which were not present. Compared with prior EKGs with no significant change. He has no chest pain. He has chronic vertigo that is getting worked up thoroughly outpatient since May. States it is somewhat worse from his baseline. Vitals within acceptable limits. He will be given IV Zofran, meclizine, fluids. We will obtain basic labs, EKG. He was in agreement this plan. Discussed CT imaging the brain however he has already received this and his symptoms are all chronic. Will defer at this time. Laboratory studies returned remarkable for mild leukocytosis of 15 however patient did just complete a course of steroids at home. No other obvious significant findings on labs. Checks x-ray returned unremarkable. EKG unremarkable with no signs of acute ischemia. At this time, I updated the patient. He is able to ambulate and symptoms have resolved. He would like to go home which I believe is reasonable. I will provide him with additional ODT Zofran but he has meclizine at home. I instructed the patient to follow up with their PCP in the next 1-3 days. I explained that the patient should return to the emergency department if they experience any worsening symptoms. Strict return precautions were discussed with the patient. The patient expressed understanding of these instructions. I answered all questions that the patient had. The patient was discharged home in good condition with their prescriptions and follow up information. Undiagnosed new problem with uncertain prognosis? @ -No Drug Therapy requiring intensive monitoring for toxicity (Heparin, Nitro, Insulin, Cardizem)? @ -No Were any procedures done? @ -No Diagnosis/symptom? @ -Vertigo Acute, or Chronic, or Acute on Chronic? @ -Acute on chronic Uncomplicated (without systemic symptoms) or Complicated (systemic symptoms)? @ -Uncomplicated Side effects of treatment? @ -No Exacerbation, Progression, or Severe Exacerbation? @ -No Poses a threat to life or bodily function? How? (Chest pain, [place], [place], pneumonia, PE, COPD, DKA, ARF, appy, cholecystitis, CVA, Diverticulitis, Homicidal, Suicidal, threat to staff... and all critical care pts) @ -Unlikely at this time (Adrien Torrez) Disposition <Miguel Ángel Meyers - Last Filed: 10/01/24 21:58> Is patient prescribed a controlled substance at d/c from ED?: No Time of Disposition: 01:26 <Adrien Torrez - Last Filed: 10/02/24 09:00> Clinical Impression: Vertigo Disposition: HOME SELF-CARE Condition: Good Instructions (If sedation given, give patient instructions): Dizziness (ED) Referrals: Miguel Ángel Pimentel MD [Primary Care Provider] - 1-2 days
[2024-10-01 22:03] VITALS: RESP 18
[2024-10-01] MEDS: MECLIZINE 12.5 MG TAB PO STA ×2 (22:24→23:57)
[2024-10-01] MEDS: SODIUM CHLORIDE 0.9% 1,000 ML IV ONE (22:24)
[2024-10-01 22:32] LABS: Basophils # (A) 0.06 10*3/uL (0.00-0.10); Basophils % (A) 0.4 %; Eosinophils # (A) 0.13 10*3/uL (0.04-0.35); Eosinophils % (A) 0.8 %; HCT 48.4 % (39.6-50.0); HGB 17.2 g/dL (13.0-17.0); Lymphocytes # (A) 1.65 10*3/uL (0.90-5.00); Lymphocytes % (A) 10.3 %; MCH 31.9 pg (27.0-32.0); MCHC 35.5 g/dL (32.0-37.0); MCV 89.8 fL (80.0-97.0); Mean Platelet Volume 9.2 fL (9.5-12.2); Monocytes # (A) 1.18 10*3/uL (0.20-1.00); Monocytes % (A) 7.4 %; Neutrophils # (A) 12.84 10*3/uL (1.80-7.70); Neutrophils % (A) 80.3 %; Platelet Count 312 10*3/uL (140-440); RBC 5.39 10*6/uL (4.40-5.60); WBC 15.99 10*3/uL (4.50-10.00)
[2024-10-01 23:18] LABS: ALT 28 U/L (4-49); African American GFR (CKD) 69 (>60 ml/min/1.73 sqM); Albumin 4.8 g/dL (3.5-5.0); Anion Gap 14 mmol/L; Blood Urea Nitrogen 30 mg/dL (9-20); Calcium 9.7 mg/dL (8.4-10.2); Carbon Dioxide 22 mmol/L (22-30); Chloride 95 mmol/L (98-107); Glucose 122 mg/dL (74-99); Magnesium 1.9 mg/dL (1.6-2.3); Non-African American GFR(CKD) 59 (>60 ml/min/1.73 sqM); Potassium 5.1 mmol/L (3.5-5.1); Sodium 131 mmol/L (137-145); Total Bilirubin 1.2 mg/dL (0.2-1.3); Total Protein 8.2 g/dL (6.3-8.2)
[2024-10-01 23:19] LABS: AST 41 U/L (17-59); Alkaline Phosphatase 62 U/L (38-126); Creatine Kinase 64 U/L (55-170)
[2024-10-01] MEDS: ONDANSETRON 4 MG/2 ML VIAL IVP STA (23:30)
--- NOTE | 2024-10-01 23:50 | XR ---
EXAMINATION TYPE: XR chest 2V DATE OF EXAM: 10/01/2024 10:53 PM COMPARISON: Chest radiographs from 06/23/2023 TECHNIQUE: XR chest 2V Frontal and lateral views of the chest. CLINICAL INDICATION:Male, 69 years old with history of Chest Pain; FINDINGS: Lungs/Pleura: There is no evidence of pleural effusion, focal consolidation, or pneumothorax. Pulmonary vascularity: Unremarkable. Heart/mediastinum: Cardiomediastinal silhouette is unremarkable. Musculoskeletal: No acute osseous pathology. IMPRESSION: No acute cardiopulmonary disease/process. [facility], , 10/01/2024 11:48 PM
[2024-10-02] MEDS: ONDANSETRON 4 MG ODT STARTER PACK 2 TAB BTL PO STA (01:51)
[2024-10-02 01:57] VITALS: BP 117/72; PULSE 86; TEMP 98.4
== END 2024-10-02 01:57 | disposition home or self-care (01) ==
LOC: EC 21:49
DX: R42 Dizziness and giddiness (principal); F17.200 Nicotine dependence, unspecified, uncomplicated; Z88.8 Allergy status to other drugs, medicaments and biological substances
CPT/HCPCS: 36415; 93005; 80053; 82550; 83735; 85025; 71046; 99285; 96374; 96361; J2405; S0119